=== PATIENT | female | born 1975 | race Caucasian/White ===

== ENCOUNTER → 2018-01-24 11:19 | Outpatient (CLI) | payer BC, SELFPAY ==
--- NOTE | 2018-01-24 | BRBX_PTH ---
PATIENT: KOURTNEY TORRE LOC: [facility] U#:[id number] AGE/SX: 50/F ROOM: RE01/24/[address]: Dr. Mahendra Hsu MD : 1975 BED: DIS: SPEC #: [id number] RECD: 01/24/18 14:25 STATUS: WILD FLO #: [id number] DELMA: 01/24/18 00:[address]: Mahendra Hsu DEPT: SURGICAL PATHOLOGY RECD BY: Rafa Campos ENTERED: 01/24/18 14:26 SP TYPE: BREAST BX OTHR DR: Radha Benito PA-C Tissues: Left breast, NOS Procedures: Surgery Specimen Level IV HEADER OPERATION: Ultrasound-guided left breast biopsy PRE-OP DIAGNOSIS: Abnormal mammogram left breast TISSUE SUBMITTED: Left breast tissue ISCHEMIC TIME: 1 minute FIXATION TIME: 11.5 hours MICROSCOPIC DIAGNOSIS Left breast, ultrasound-guided core biopsy: Invasive ductal carcinoma with the following characteristics: Maximal length - 8 mm Nuclear grade ? 11/11 AM:christy 01/25/18 COMMENT ER/WI/Oaf5bop studies are being performed on sections of tumor and the results from this study will be reported separately ([id number]). Case has been reviewed in consultation with Dr. South who concurs with the above diagnosis. IDC:[email or web address] MICROSCOPIC DESCRIPTION Slides are reviewed. GROSS DESCRIPTION Received in fixative is one container labeled with the patient's name and designated left breast. The specimen consists of two elongated fragments of spain-yellow fibroadipose tissue each measuring 1.4 cm in length and 0.1 cm in diameter. The entire specimen is submitted in one cassette. / BAKARI:christy 01/24/18 TC:0 CPT: 89375
--- NOTE | 2018-01-24 | IMM_PTH ---
PATIENT: KOURTNEY TORRE LOC: [facility] U#:[id number] AGE/SX: 50/F ROOM: RE01/24/[address]: Dr. Mahendra Hsu MD : 1975 BED: DIS: SPEC #: [id number] RECD: 01/25/18 11:26 STATUS: WILD REQ #: [id number] DELMA: 01/24/18 00:[address]: Mahendra Hsu DEPT: IMMUNOHISTOCHEMISTRY RECD BY: Mary Neff Tissues: Left breast, NOS Procedures: CALPONIN-1 (add) CK5-6 (add) CK8 (add) E-CAD (add) HER2 JENNA (add) KI-67 (add) P53 (add) CO (add) P40 (add) ER (initial) PHYSICIAN & INSTITUTION [place] [id number] SPECIMEN INFORMATION: Tissue Source: Left breast tissue Clinical Info: Abnormal mammogram left breast Specimen Number: [id number] CPT code: 84709, 38839 x6, 48668 x3 METHODOLOGY: Deparaffinized sections of prefer/formalin-fixed tissue or PAP/DQ stained slides are incubated with monoclonal/polyclonal antibodies/oligonucleotide probes. Localization is made via biotin free immunoperoxidase method. Appropriate controls are performed and reacted as expected. Results on target cell population are indicated in the following table: RESULTS: ANTIBODY / CLONE RESULT P53 (DO-7) positive, 2% dim Ki-67 (30-9) positive, low CK8 (71qbpoW05) positive CK5-6 (D5 & 1684) negative Calponin-1 (HT061O) negative P40 (BC28) negative E-Cad (ECH-6) positive MORPHOMETRIC ANALYSIS ER (clone 6F11) >95%, strong CO (clone 16/1E2) >95%, strong Her-2Neu (clone CB11) 0-1+ The prognostic test for HER2 is performed on formalin-fixed paraffin embedded tissue. A 3+ (positive) staining pattern is defined as intense, homogeneous, complete, circumferential membranous staining in >10% of contiguous tumor cells. A similar weak (2+) staining pattern is interpreted as equivocal. CATHY follow-up testing is recommended for all equivocal cases. Positivity/negativity for ER/CO is reported if > or < 1% of the tumor cells are immuno- reactive, respectively. The ASCO/CAP criteria is used for scoring. Reference: Journal of Clinical Oncology, 2013; 31:3521-6726 & 2010; 16:8768-7810. Duration of fixation: 11.5 Hrs; Sample Adequate: Yes. These assays have not been validated on decalcified tissues. Results should be interpreted with caution given the likelihood of false negativity on decalcified specimens. These tests were developed and their performance characteristics determined by [facility]. They may not have been cleared or approved by the U.S. Food and Drug Administration. The FDA has determined that such clearance or approval is not necessary. INTERPRETATION: Left breast, ultrasound-guided biopsy: Invasive ductal carcinoma, grade 2/3. Positive for estrogen receptors (favorable prognostic indicator). Positive for progesterone receptors (favorable prognostic indicator). Negative for overexpression of ZQS7tzs. AM:christy 01/25/18
== END ==
PROVIDERS: Visit Provider Surgery
DX: R92.8 Other abnormal and inconclusive findings on diagnostic imaging of breast (principal)
CPT/HCPCS: 88305; 88341; 88342

== ENCOUNTER 2018-02-21 09:56 | Observation (INO) | payer BC, SELFPAY ==
[2018-02-15 12:02] LABS: Anion Gap 8 (5-15); BUN 16 mg/dL (7-18); BUN/Creat Ratio 14.7 RATIO (10-20); Calcium,Total 8.2 mg/dL (8.5-10.1); Chloride 108 mmol/L (98-107); Creatinine, Serum 1.09 mg/dL (0.55-1.02); EST Glomerular Filtration Rate 59 mL/min (>60); Est Glom Filt Rate - Afr Amer 71 mL/min (>60); Glucose 67 mg/dL (74-106); Potassium 3.9 mmol/L (3.5-5.1); Sodium Level 142 mmol/L (136-145)
--- NOTE | 2018-02-19 21:22 | PCM.HP.BLA ---
History and Physical Date of Admission: 02/20/18 HISTORY OF PRESENT ILLNESS 42-year-old woman Presents for Evaluation for Breast Reconstruction. She had her annual mammogram and ultrasound on January 09, [address] [facility]. It showed a suspicious mass in the left breast at the [address] Hsu performed a breast biopsy on January 24, 2018. It showed invasive ductal carcinoma, grade 2/3. Estrogen receptors were positive. Progesterone receptors were positive. KCP3yme was negative for overexpression. She has decided on proceeding with mastectomy. 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 She is concerned about developing breast cancer in the right breast over her lifetime. With this cancer phobia, the patient has expressed interest in a prophylactic mastectomy on the right side as well and then proceeding with bilateral breast reconstruction. Patient denies any nipple discharge. Patient had a gastric bypass procedure done 8 years ago in [place]. PAST MEDICAL HISTORY Ulcer. Sleep apnea. Asthma. Sinusitis. Allergic rhinitis. Hypertension. Vitamin D deficiency. Vitamin B12 deficiency. Hypothyroidism. PAST SURGICAL HISTORY Cholecystectomy. Gastric bypass procedure 8 years ago. . MEDICATIONS Budesonide-formoterol. Vitamin D2. Oralia. Folic acid. Singulair. Omeprazole. Spironolactone. ALLERGIES None. SOCIAL HISTORY Patient does not smoke. Patient does not drink alcohol. FAMILY HISTORY Positive for breast cancer. Father-asthma, bleeding disorder, kidney cancer, heart disease, hypertension, thyroid disorder, and ulcer. Mother-bleeding disorder, diabetes, and osteoporosis. REVIEW OF SYSTEMS General - Denies fever, fatigue. Had weight loss from gastric bypass procedure. ENT - Denies nasal congestion and sore throat. Eyes - Denies cataracts and glaucoma. Endocrine - Denies excessive thirst and urination. Has recent diagnosis of left breast cancer. Has cancer phobia right breast. Has thyroid disease. Skin - No suspicious lesions. Musculoskeletal - Denies joint pain, joint stiffness, weakness of muscles and joints, back pain, and arthritis. Neuro - Denies headaches. Cardiovascular - Denies chest pain, fatigue, shortness of breath with exertion. Respiratory - Denies cough and shortness of breath. Has asthma. Psych - Denies anxiety and depression. Gastrointestinal - Denies nausea, vomiting, and constipation. Has some diarrhea. Hematologic - Denies abnormal bruising and bleeding. Genitourinary - Denies hematuria and urinary frequency. PHYSICAL EXAMINATION General - Alert and oriented. Her bra size is 38 DD. HEENT - PERRL. EOMI. Throat is clear. Neck - Supple and nontender. No cervical adenopathy. Breast - Bilateral macromastia. Stage II ptosis with the nipple areolar complex below the inframammary fold. No breast masses palpable in right breast. Residual bruising noted in left breast at biopsy area. No axillary adenopathy. Distance from midclavicular line on the right to the nipple is 31 cm and from the nipple to the inframammary fold is 10 cm. Distance from midclavicular line on the left to the nipple is 31 cm and from the nipple to the inframammary fold is 12 cm. Nipple areolar complex diameter is 6 cm bilaterally. Breast diameter is 15 cm bilaterally. No inframammary intertrigo noted. Heart - Regular rate and rhythm. Lungs - Clear to auscultation. Abdomen - Soft and nondistended. No hernias noted. There is a lower midline scar from the umbilicus to the pubis. There is skin and subcutaneous tissue redundancy between the umbilicus and the pubic area. The tissue has decreased elasticity from the weight loss. Extremities - FROM. No axillary adenopathy. No inguinal adenopathy. Neuro - CN II - XII grossly intact. ASSESSMENT 1. Left breast cancer. 2. Cancer phobia right breast. 3. Planned acquired absence bilateral breasts. 4. Planned disproportion reconstructed breasts. 5. Breast ptosis. 6. Family history of breast cancer. 7. Estrogen receptor positive status. 8. Excessive weight loss from gastric bypass procedure. PLAN Discussed with the patient the various breast reconstruction options. These range between using expanders and implants versus using autogenous tissue versus a combination of the 2. She initially was leaning toward using expanders and implants. She has enough tissue using autogenous tissue in her abdominal area. However the tissue is not of good quality because of decreased elasticity from her weight loss. Using a pedicle TRAM flap may lead to increased wound healing problems. To minimize those wound healing problems with her decreased tissue elasticity, she will need to go to a tertiary center where microvascular free tissue transfer would be used for the breast reconstruction. Patient states that she would like to stay local. With her recent diagnosis of left breast cancer, the patient is getting nervous and developing concerns about developing cancer in the right breast at some point in her lifetime. With this cancer phobia, she is a candidate for prophylactic mastectomy on the right side followed by bilateral breast reconstruction. She has expressed interest that she would like to proceed with prophylactic mastectomy at this time. I would do the prophylactic mastectomy at the same time as Dr. Hsu doing the mastectomy. We would utilize separate instruments and separate staff to minimize cross contamination of cancer cells. After the mastectomies are completed, we would then proceed with beginning the immediate breast reconstruction process. The traditional option is placement of saline tissue expanders in a submuscular position followed by the removal in the future with replacement cohesive gel implants. With her degree of breast ptosis, she would need revision of her breast reconstruction in the future with excision of the excess skin tissue with a breast lift type of procedure and incision to help shape the skin envelope over the implants. With her decreased elasticity of her breast skin, she is at increased risk of wound healing problems at the Tzone. One way to minimize that is to decide on size of implant and then place a smaller one to minimize tension on the incision. Even with the smaller implant, the risk is less but still there. Therefore for the mastectomy procedure instead of using the traditional horizontal incision which includes the nipple areolar complex, I will proceed with the Tzone breast lift incision. If there is breakdown in the T-zone area, it usually heals with local wound care and antibiotics. However sometimes we are pressed for time during the postop period because of the need for adjuvant therapy such as chemotherapy or radiation therapy. If this becomes an issue postop because of the need for adjuant therapy, the implant may need to be removed with or without placement of an shuttler car until the adjuvant therapy is completed. I do not want to compromise the cancer care and adjuvant therapy with breast reconstruction healing issues. I would place acellular dermal matrix graft over the implant in the prepectoral position to help protect the implant if there is some Tzone breakdown. The patient understands that because of the gastric bypass, the skin flaps in the breasts would not be of the best quality and that placement of submuscular tissue expanders would be safer initially. She voiced understanding and wishes to proceed. She understands extra surgery may be necessary if there is exposed implants from wound healing problems. Tissue that is removed from the right breast will be sent to pathology for analysis to rule out carcinoma. She would have drains in for several days and have a chest wall compression wrap to minimize seroma formation. Drains would be in for 10-14 days. Sometimes during this breast cancer process, it is normal to have anxiety and have trouble eating and sleeping. Will write a script for Valium (30 tabs) to help with her anticipated anxiety. If she does not need any Valium before the surgery, she will certainly need it afterward because of the muscle spasm that will result from the mastectomies. Patient was informed of the risks and complications of the procedure including alternatives of surgery. These are discussed with him personally. She voices understanding and wishes to proceed. Some of the risks and complications were included in the form from the [employer]. We will call Dr. Hsu's office to help coordinate the surgery in the next couple of weeks. Surgery will be under general anesthesia with a surgical observation overnight stay. She will go home once she is tolerating oral pain medication.
[2018-02-20] VITALS (8 sets, daily range): BP systolic 103–167; BP diastolic 53–93; PULSE 53–63; RESP 14–18; TEMP 36–37.3; O2SAT 98–100; BMI 36.8
--- NOTE | 2018-02-20 | AXNB_PTH ---
PATIENT: KOURTNEY TORRE LOC: [facility] U#:[id number] AGE/SX: 42/F ROOM: [id number] RE02/21/[address]: Dr. Sundar Aquino MD : 1975 BED: 1 DIS: 02/22/2018 SPEC #: [id number] RECD: 02/20/18 10:36 STATUS: WILD REQ #: [id number] DELMA: 02/20/18 00:[address]: Sundar Aquino DEPT: SURGICAL PATHOLOGY RECD BY: Mary Neff ENTERED: 02/20/18 10:38 SP TYPE: AX NODE BX OTHR DR: Radha Benito PA-C Tissues: A - Axillary lymph node, NOS B - Left breast, NOS C - Right breast, NOS D - Left breast, NOS Procedures: Frozen Section (charge) [facility] Surgery Specimen Level IV Surgery Specimen Level V Frozen (no charge) HEADER OPERATION: Left mastectomy with sentinel lymph node biopsy; right prophylactic mastectomy PRE-OP DIAGNOSIS: Invasive ductal carcinoma left breast; planned acquired absence bilateral breasts TISSUE SUBMITTED: A - Left sentinel lymph node at 0935, FS, B ? Left breast, C ? Right breast and skin, D ? Previous biopsy site left lateral breast ? suture at site FROZEN SECTION DIAGNOSIS A. Left sentinel lymph node, biopsy: Two out of two lymph nodes, negative for metastatic carcinoma. SJ:christy 02/20/18 MICROSCOPIC DIAGNOSIS A. Left sentinel lymph node, biopsy: Two out of two lymph nodes, negative for metastatic carcinoma. B. Left breast, mastectomy: Invasive ductal carcinoma. See cancer summary below. C. Right breast and skin, mastectomy: Focal minimal fibrocystic changes and intraductal hyperplasia without atypia. D. Previous biopsy site left lateral breast: Focal fat necrosis and fibrosis, consistent with previous biopsy site. Negative for carcinoma. INVASIVE BREAST CANCER SUMMARY: (Including specimens A & B) Specimen ? total breast (including nipple and skin). Procedure ? total mastectomy (including nipple and skin). Lymph node sampling ? sentinel lymph nodes Specimen integrity ? single intact specimen Specimen laterality - left Tumor site ? upper outer quadrant Tumor size ? 1.5 x 1.5 x 1 cm Tumor focality ? single focus of invasive carcinoma. Macroscopic and Microscopic extent of tumor: Skin ? invasive carcinoma does not invade into the dermis or epidermis. Nipple ? ductal carcinoma in situ does not involve the nipple epidermis Skeletal muscle ? no skeletal muscle present. Ductal carcinoma in situ (DCIS) - present Extensive intraductal component (EIC) - negative Estimated size (extent) of DCIS ? DCIS comprise <5% of the total tumor volume Number of blocks with DCIS - 2 Number of blocks examined - 12 Architectural patterns ? cribriform pattern Nuclear grade ? grade 2 (intermediate) Necrosis ? not identified Lobular carcinoma in situ (LCIS) ? not present Histologic type of invasive carcinoma ? no special type Histologic Grade (Radha grade): Glandular/tubular differentiation - score 1 Nuclear pleomorphism - score 2 Mitotic count ? score 1 Overall grade - 1 (score of 4) Margins - Margins uninvolved by invasive carcinoma and ductal carcinoma in situ. The invasive carcinoma and ductal carcinoma in situ are 1.4 cm away from the closest superior margin. Treatment effect: Response to presurgical (neoadjuvant) therapy - no known presurgical therapy. Lymph-Vascular invasion ? not identified Dermal lymph-vascular invasion - not identified Lymph nodes: Number of sentinel lymph nodes examined - 2 Total number of lymph nodes examined (sentinel and nonsentinel) - 2 Number of lymph nodes with macrometastases, micrometastases and isolated tumor cells - 0 Method of evaluation of sentinel lymph nodes - H & E, multiple levels and IHC. Distance metastasis ? not applicable Additional pathologic findings ? fibrocystic changes and intraductal hyperplasia without atypia. Ancillary studies - previously performed on section of tumor ([id number] / [id number]). ER ? positive (>95%, strong) CO - positive (>95%, strong) Her2 maynor ? negative (0-1+) Her2 by dual CATHY ? not performed Microcalcifications ? present in benign breast tissue Clinical history - Please make reference to previous specimen ([id number]) left breast, ultrasound-guided core biopsy with diagnosis of invasive ductal carcinoma. PATHOLOGIC STAGE: pT1c pN0(sn) Mx The above summary is in compliance with [employer] (CAP) Cancer Protocols Checklist and [place] Joint Committee on Cancer (AJCC), Staging Manual, 8th Ed. SJ:christy 02/23/18 COMMENT A. The lymph nodes are negative for metastatic carcinoma on multiple H & E levels and immunohistochemical stains for cytokeratins ([id number]). MICROSCOPIC DESCRIPTION Slides are reviewed. GROSS DESCRIPTION A - Received fresh for frozen section diagnosis labeled with the patient's name is a specimen designated left sentinel lymph node. The specimen consists of two pieces of yellow adipose tissue containing nodule measuring in aggregate 4 x 3.5 x 1.5 cm. Two nodules consistent with lymph nodes are identified each measuring 2 cm in greatest dimension. The lymph nodes are submitted in entirety for frozen section diagnosis in two cassettes as follows: 1 ? frozen section, one bisected lymph node, 2 ? frozen section, one bisected lymph node. / SJ:rg 02/20/18 B - Received in fixative is one container labeled with the patient's name and designated left breast. The specimen consists of a mastectomy specimen consisting of breast tissue with overlying skin ellipse. The breast tissue measures 28 x 18 x 8 cm and the skin ellipse measures 14.5 x 5 cm. The nipple measures 1.1 cm in greatest dimension. Also present in the container are three variable sized pieces of skin measuring in aggregate 11 x 9 x 3 cm. The specimen is not oriented. The presumed margins are inked as follows: superior ? green, inferior ? blue, anterior ? yellow, posterior ? black, medial ? orange and lateral ? red. The skin surface shows blue dye discoloration. No skin lesion is identified. Serial sections reveal a spain, indurated mass in the upper outer quadrant of the breast tissue measuring 1.5 x 1.5 x 1 cm. The tumor mass is 1.5 cm away from the closest superior margin. Sections of the rest of the breast tissue and additional pieces of tissue reveal yellow adipose cut surfaces mixed with a scant fibrous area. Extrusion Line Operator sections are submitted in 12 cassettes as follows: 1 ? nipple, entirely submitted, 2 ? perpendicular medial, lateral and superior margins, 3 ? perpendicular anterior margin, posterior margin and skin, 4-7 ? tumor, entirely submitted (cassette 4 contains the tumor with closest inferior margin), 812 ? veterans contact representative sections from the other area. / SJ:christy 02/21/18 C - Received in fixative is one container labeled with the patient's name and designated right breast and skin. The specimen consists of a mastectomy specimen consisting of breast tissue with overlying skin piece (pear-shape). The breast tissue measures 23 x 20 x 6 cm. The overlying skin ellipse measures 11 x 4 cm. The specimen is not oriented. The specimen is inked as follows: superior ? blue, inferior ? green, posterior ? black, medial ? red and lateral ? orange. Also present in the container are multiple pieces of skin with underlying fibroadipose tissue measuring in aggregate 15 x 13 x 4 cm. The nipple measures 1.2 cm in greatest dimension. No skin lesion is identified. Sections of the breast tissue and attached pieces of adipose tissue do not reveal any mass lesion and reveals spain-yellow adipose cut surfaces mixed with a scant fibrous area. Extrusion Line Operator sections are submitted in 11 cassettes as follows: 1 ? nipple, entirely submitted, 2-4 ? medial portion breast tissue, 5-7 - medial portion breast tissue, 8-10 ? lateral portion breast tissue, 11 ? detached piece of skin with underlying adipose tissue. / BAKARI:christy 02/21/18 D - Received in fixative is one container labeled with the patient's name and designated previous biopsy site, left lateral breast, suture at site. The specimen consists of a triangular piece of spain-white skin measuring 9.5 x 9 cm and up to 1.5 cm in thickness. The biopsy site is identified by a suture. The deep surface underneath the biopsy site is inked black. Sections do not reveal any mass lesion. Extrusion Line Operator sections are submitted in three cassettes as follows: 1 ? biopsy site area, 2 ? sections adjacent to the biopsy site, 3 - Extrusion Line Operator sections from the other area. / BAKARI:christy 02/21/18 TC:0 CPT: 00138 x3, 79321, 46648, 34288 ADDENDUM ADDENDUM ADDENDUM ADDENDUM ADDENDUM ADDENDUM ADDENDUM ADDENDUM 04/02/2018 13:17 ADDENDUM 04/02/2018 13:17 ADDENDUM 04/02/2018 13:17 ADDENDUM 04/02/2018 13:17 ADDENDUM 04/02/2018 13:17 An order for Oncotype testing was received from Dr. Masters. This necessitated case review, block and slide selection by pathologist at [facility]. Breast Cancer Recurrence Score = 12 Results of the complete Oncotype testing ([employer] report) are viewable in EMR under: Reports - Pathology - Lab Pathology Report, Scanned.
--- NOTE | 2018-02-20 | IMM_PTH ---
PATIENT: KOURTNEY TORRE LOC: [facility] U#:[id number] AGE/SX: 42/F ROOM: [facility] RE02/21/[address]: Dr. Sundar Aquino MD : 1975 BED: 1 DIS: 02/22/2018 SPEC #: [id number] RECD: 02/23/18 10:43 STATUS: WILD REQ #: [id number] DELMA: 02/20/18 00:[address]: Sundar Aquino DEPT: IMMUNOHISTOCHEMISTRY RECD BY: Mary Neff ENTERED: 02/23/18 10:45 SP TYPE: IMMUNO OTHR DR: Radha Benito PA-C Tissues: A - Axillary lymph node, NOS Procedures: CK7 (add) Pankeratin (initial) Pankeratin (add) PHYSICIAN & INSTITUTION [place] [id number] SPECIMEN INFORMATION: Tissue Source: A ? Left sentinel lymph node, biopsy Clinical Info: Invasive ductal carcinoma left breast Specimen Number: [id number] A1 & A2 CPT code: 23236, 98846 x3 METHODOLOGY: Deparaffinized sections of prefer/formalin-fixed tissue or PAP/DQ stained slides are incubated with monoclonal/polyclonal antibodies/oligonucleotide probes. Localization is made via biotin free immunoperoxidase method. Appropriate controls are performed and reacted as expected. Results on target cell population are indicated in the following table: RESULTS: ANTIBODY / CLONE RESULT Block A1 AE1-3 (AE1/AE3/PCK26) negative CK7 (OV-TL12/30) negative Block A2 AE1-3 (AE1/AE3/PCK26) negative CK7 (OV-TL12/30) negative These tests were developed and their performance characteristics determined by [facility]. They may not have been cleared or approved by the U.S. Food and Drug Administration. The FDA has determined that such clearance or approval is not necessary. INTERPRETATION: A. Left sentinel lymph node, biopsy: Two out of two lymph nodes, negative for metastatic carcinoma. SJ:christy 02/23/18
[2018-02-20 07:23] LABS: Internal QC Validated? YES +Cl - CLEAR BKGD; Pregnancy, Urine Negative Negative
[2018-02-20] MEDS: Cefazolin 2 GM in 0.9% Normal Saline 100 ML IV (08:35)
--- NOTE | 2018-02-20 08:39 | PCM.OPRPT ---
Problem List (1) Malignant neoplasm of upper-outer quadrant of left female breast Status: Acute Qualifiers: Estrogen receptor status: positive Qualified Code(s): C50.412 - Malignant neoplasm of upper-outer quadrant of left female breast; Z17.0 - Estrogen receptor positive status [ER+] Report of Operation Date of Procedure: 02/20/18 Pre-Operative Diagnosis: c50.412 left breast cancer upper outer quadrant. z17.0 estrogen receptor positive Post-Operative Diagnosis: same Surgery/Procedure Performed:: 1. inj 5 cc lympozuren blue. 2. left masectomy. 3. left sentinel lymph node biopsy Anesthesiologist: Isreal Ferreira Description of Procedure: Patient was brought into the operating room. Placed in the supine position. Under excellent endotracheal intubation 5 cc of Lymphazurin blue were injected circumareolar the around the left nipple. Then both breasts were sterilely prepped and draped in the usual fashion. Dr. Aquino will be dictating the mastectomy on the right side in the immediate reconstruction and I will be dictating the mastectomy and sentinel lymph node component on the left breast. A teardrop incision was made around the nipple areolar complex on the left breast. Plasma blade was used to create flaps and a medial superior and lateral fashion I rotated the breast off of the pectoralis major muscle with the plasma blade. I was able to get the breast from the sternum and inferiorly from the rectus abdominis muscle and rotated it from a medial to lateral standpoint. I had excellent hemostasis. I was able to remove the breast completely and sent to pathology for permanent sectioning. I entered the clavipectoral fascia and immediately identified a blue lymph node remove this with a harmonic dissector as I palpated deeper I felt another lymph node dissected it free it was lightly blue and remove this as well with the harmonic dissector. I sent both of these off for frozen section which confirmed lymph nodes and were negative for metastatic cancer. I inspected the wound I had excellent hemostasis. Dr. Aquino will ellipsed the previous biopsy site out from the lateral aspect and will dictate this during his dictation. I then broke scrub and went and spoke to the family. - Admit VTE Documentation VTE Present on Admission: No VTE Mechan Device Prophylaxis: SCD's VTE Pharm Prophylaxis ordered?: No Reason prophylaxis not ordered:: Treatment Not Indicated
[2018-02-20] MEDS: Isosulfan Blue 1% 5 ML Vial (08:55)
[2018-02-20] MEDS: Methylene Blue 1% 100 MG/10 ML VIAL (09:30)
--- NOTE | 2018-02-20 15:50 | PCM.IMDPSTOP ---
Immediate Post-Op Note Date of Procedure: 02/20/18 Primary Surgeon/Physician: Sundar Aquino parcel contractor: Shanice Montes. Pre-Operative Diagnosis: 1. Left breast cancer. 2. Cancer phobia right breast. 3. Planned acquired absence bilateral breasts. 4. Planned disproportion reconstructed breasts. 5. Breast ptosis. 6. Family history of breast cancer. 7. Estrogen receptor positive status. 8. Excessive weight loss from gastric bypass procedure. Post-Operative Diagnosis: Same. Surgery/Procedure Performed:: 1. Prophylactic mastectomy right breast. 2. Immediate bilateral breast reconstruction with bilateral placement of prepectoral cohesive gel implants (650 ml each side) and placement of Alloderm Select acellular dermal matrix graft (300 cm2 each side). 3. Immediate bilateral breast reconstruction with bilateral mastopexy. Description of Surgical Findings:: 42-year-old woman Presents for Evaluation for Breast Reconstruction. She had her annual mammogram and ultrasound on January 09, 2018 at [facility] It showed a suspicious mass in the left breast at the [address] Hsu performed a breast biopsy on January 24, 2018. It showed invasive ductal carcinoma, grade 2/3. Estrogen receptors were positive. Progesterone receptors were positive. ZEL0idl was negative for overexpression. She has decided on proceeding with mastectomy. 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 She is concerned about developing breast cancer in the right breast over her lifetime. With this cancer phobia, the patient has expressed interest in a prophylactic mastectomy on the right side as well and then proceeding with bilateral breast reconstruction. Patient denies any nipple discharge. Patient had a gastric bypass procedure done 8 years ago in [place]. Today the patient underwent injection 5 cc lympozuren blue and left masectomy and left sentinel lymph node biopsy by Dr. Hsu and prophylactic mastectomy right breast and immediate bilateral breast reconstruction with bilateral placement of prepectoral cohesive gel implants (650 ml each side) and placement of Alloderm Select acellular dermal matrix graft (300 cm2 each side) and immediate bilateral breast reconstruction with bilateral mastopexy by Dr. Aquino. IV Fluids - 2200 ml. Urine Output - 700 ml. In the right breast, I used [facility] MemoryGel Smooth Round Ultra High Profile Breast Implant, (650 ml). Reference Number - [id number]. Lot Number - [id number]. Serial Number - [id number]. In the left breast, I used [facility] MemoryGel Smooth Round Ultra High Profile Breast Implant, (650 ml). Reference Number - [id number]. Lot Number - [id number]. Serial Number - [id number]. In the right breast, I used Alloderm Select Acellular Dermal Matrix Graft, X-Thick, (320 cm2). Reference Number - [id number]. Lot Number - [id number]. Expiration - June,. In the left breast, I used Alloderm Select Acellular Dermal Matrix Graft, X-Thick, (320 cm2). Reference Number - [id number]. Lot Number - [id number]. Expiration - June,. I used Stuart absorbable hemostat, (I used 2 vials, one in each breast). Reference Number - [id number]. Lot Number - [id number]. Expiration - October 05, 2022. Estimated Blood Loss: 150 ml. Specimen's removed: 1. Right breast tissue to Pathology. 2. Left breast biopsy scar to Pathology. Drains: Shen drains x 4 (2 drains in each breast). Type of Anesthesia:: General - Admit VTE Documentation VTE Present on Admission: No VTE Mechan Device Prophylaxis: SCD's VTE Pharm Prophylaxis ordered?: Yes
--- NOTE | 2018-02-20 17:28 | NURSING ---
pt did not receive flu shot last yr
[2018-02-20] MEDS: Folic Acid 1 MG Tablet PO (18:41)
[2018-02-20] MEDS: oxyCODONE 5 MG Tablet 10 MG PO ×2 (19:13→19:59)
--- NOTE | 2018-02-20 19:32 | NURSING ---
Pt started on LR 60cc/hr upon arrival to unit from LR bag hanging from PACU.
--- NOTE | 2018-02-20 20:56 | PCM.OPRPT ---
Report of Operation Date of Procedure: 02/20/18 Pre-Operative Diagnosis: 1. Left breast cancer. 2. Cancer phobia right breast. 3. Planned acquired absence bilateral breasts. 4. Planned disproportion reconstructed breasts. 5. Breast ptosis. 6. Family history of breast cancer. 7. Estrogen receptor positive status. 8. Excessive weight loss from gastric bypass procedure. Post-Operative Diagnosis: Same. Surgery/Procedure Performed:: 1. Prophylactic mastectomy right breast. 2. Immediate bilateral breast reconstruction with bilateral placement of prepectoral cohesive gel implants (650 ml each side) and placement of Alloderm Select acellular dermal matrix graft (300 cm2 each side). 3. Immediate bilateral breast reconstruction with bilateral mastopexy. Description of Surgical Findings:: 42-year-old woman Presents for Evaluation for Breast Reconstruction. She had her annual mammogram and ultrasound on January 09, 2018 at [facility]. It showed a suspicious mass in the left breast at the [address] Hsu performed a breast biopsy on January 24, 2018. It showed invasive ductal carcinoma, grade 2/3. Estrogen receptors were positive. Progesterone receptors were positive. [id number] was negative for overexpression. She has decided on proceeding with mastectomy. 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 She is concerned about developing breast cancer in the right breast over her lifetime. With this cancer phobia, the patient has expressed interest in a prophylactic mastectomy on the right side as well and then proceeding with bilateral breast reconstruction. Patient denies any nipple discharge. Patient had a gastric bypass procedure done 8 years ago in [place]. Patient was informed of the risks and complications of the procedure including alternatives of surgery. These are discussed with him personally. She voices understanding and wishes to proceed. Some of the risks and complications were included in the form from the [employer]. IV Fluids - 2200 ml. Urine Output - 700 ml. In the right breast, I used [facility] MemoryGel Smooth Round Ultra High Profile Breast Implant, (650 ml). Reference Number - [id number]. Lot Number - [id number]. Serial Number - [id number]. In the left breast, I used [facility] MemoryGel Smooth Round Ultra High Profile Breast Implant, (650 ml). Reference Number - [id number]. Lot Number - [id number]. Serial Number - [id number]. In the right breast, I used Alloderm Select Acellular Dermal Matrix Graft, X-Thick, (320 cm2). Reference Number - [id number]. Lot Number - [id number]. Expiration - June,. In the left breast, I used Alloderm Select Acellular Dermal Matrix Graft, X-Thick, (320 cm2). Reference Number - [id number]. Lot Number - [id number]. Expiration - June,. I used Stuart absorbable hemostat, (I used 2 vials, one in each breast). Reference Number - [id number]. Lot Number - [id number]. Expiration - October 05, 2022. occupational rehabilitation aide: Shanice Montes. Type of Anesthesia:: General Specimen's removed: 1. Right breast tissue to Pathology. 2. Left breast biopsy scar to Pathology. Drains: Shen drains x 4 (2 drains in each breast). Estimated Blood Loss (mL): 150 ml. Fluids Replaced: 2900 ml (IV Fluids 2200 ml and Urine Output 700 ml). Description of Procedure: Patient was taken to OR in supine position and in the sitting position preop markings were made. The sternal midline was marked down to the umbilicus. The inframammary folds were marked bilaterally. The midclavicular lines were marked down to the nipple and from the nipple to the inframammary fold. Vertical markings were made around the nipple down to the inframammary crease at the level of the midclavicular line. The patient was placed supine and placed under general anesthesia. Both breasts were prepped and draped in the usual fashion. A couch catheter was placed. Dr. Hsu worked on the left side with separate instruments and a separate staff. I worked on the right side with separate instruments and a separate staff. The preop markings were tattooed with Methylene Blue and a 25 gauge needle. He then proceeded with the left mastectomy which he will dictate separately. I started on the right side with first injecting the markings with Xylocaine with epinephrine. After waiting 5 minutes for the anesthetic to take effect, I made incision around the nipple down to the inframammary fold at the level of the midclavicular line. Placing the skin flaps on stretch, I dissected the breast tissue from the subcutaneous tissue of the skin flaps at the level of New's fascia. I dissected medially to the sternum, superiorly to the clavicle, laterally to the anterior axillary line, and inferiorly to the inframammary fold. The breast tissue was then dissected off the pectoralis muscle and sent to Pathology for analysis to rule out carcinoma. Hemostasis was obtained with electrocautery. The wound was irrigated with saline. I then temporarily closed the incision with surgical clips until Dr. Hsu was finished with his axillary dissection and frozen section analysis. The frozen section showed the lymph nodes were negative. So Dr. Hsu was finished and I then proceeded with the bilateral breast reconstruction. His instruments were removed from the operative field. The patient was then reprepped and draped and I rescrubbed and regowned for the reconstruction. To get a reasonable size of implant for the reconstruction, I will place the implant in the prepectoral position and cover the implant completely with Alloderm. I will use X-thick Alloderm for both breasts. I first proceeded with the mastopexy bilaterally. After securing the vertical incision with surgical clips, I made horizontal markings at the level of the inframammary fold. Incisions were mad as the excess tissue was removed. The horizontal incision was then closed with surgical clips. Care was taken to keep the Tzone area soft and without tension. I will then decide on size of implant to fit the breast pocket without too much tension. I may decide to then go down one size to keep less tension on the Tzone area since the tissue is weaker because if her history of gastric bypass. In these patients, the subcutaneous tissue human resource professional skin junction is weaker than normal. I secured the Alloderm to the chest wall with 3-0 Vicryl sutures to the superior aspect, and both sides leaving the inferior side open for placement of the sizer and then the implant. This was done bilaterally. I measured the breast width at 15 cm. I initially tried a 535 ml sizer, high profile xtra. I secured the sizer in the Alloderm pocket with 3-0 Vicryl sutures in the inferior aspect. I then closed the vertical incision and horinzontal incision temporarily to make sure the closure is not too tight. This was done with 3-0 Vicryl running suture. The patient was then placed in the sitting position. Good symmetry was noted between the right breast and the left breast. There did not seem to be too much tension at the Tzone which is my biggest concern. There appeared to be more space in the breast pockets. So I increased the sizer all the way up to 650 ml. The 650 ml sizer was the ultra high profile. Once again good contour was noted and there was not too much tension on the Tzone area. I probably could have gone higher but did not want to risk too much tension on the Tzone area so I stopped at 650 ml. The patient was then placed in the supine position and the temporary sutures were removed. The excess tissue that was excised from the mastopexy was sent with the mastectomy specimens. On the left side part of the mastopexy excision included the biopsy site laterally. This portion was sent separately to Pathology. The sizers were removed and the breasts were irrigated with saline. Hemostasis was obtained with electrocautery. Two size 15 Shen drains were placed in each breast through separate stab incisions laterally and secured to the skin with 3-0 Nylon suture. One drain was used for the breast pocket and one was used for the axillary area. I then sprayed Stuart absorbable hemostat into both breast wounds, one vial for each breast. I then placed the [facility] Smooth Round Ultra High Profile cohesive gel implants (650 ml) into both breast pockets underneath the Alloderm in the prepectoral position. The rest of the Alloderm was secured to the chest wall inferiorly. A malleable was placed to protect the implant during this point. The excess Alloderm was trimmed on both sides. more so on the left. I used about 300 cm2 Alloderm on each side. I then closed the mastopexy T incisions by first approximating the leading edge of the medial and lateral breast flaps to the midline of the inframammary fold with 2-0 Vicryl suture. The deep dermis and subcutaneous tissue of the horizontal and vertical incisions were approximated with 3-0 Monocryl interrupted sutures. The horizontal skin was approximated with 3-0 V-lock unidirectional barbed running subcuticular suture. The vertical skin was approximated with 4-0 Prolene simple running suture. This was topped off with Histoacryl skin tissue adhesive. Good contour was noted between the right breast and left breast. No vascular compromise was noted on the breast flaps bilaterally. Kerlix gauze dressing was applied followed by a surgical bra and an edna wrap. At the end of the procedure, there was no evidence of hematoma. The patient tolerated the procedure well and was sent to PACU in satisfactory condition. She will be admitted for a surgical observation overnight stay. She will keep her head elevated during the initial postop period. She will be discharged when steady on her feet with ambulation and tolerating po analgesia. She will be discharged home with her drains. They will be removed in 10-14 days. Grafts/Implants Used: [facility] MemoryGel Breast Implants and Alloderm acellular dermal matrix graft - Complications None. - Admit VTE Documentation VTE Present on Admission: No VTE Mechan Device Prophylaxis: SCD's VTE Pharm Prophylaxis ordered?: Yes Reason prophylaxis not ordered:: Medical Contraindication Code Visit Surgery Charges CPT - 05481 ICD-10 - C50.912, F40.298, Z90.13, N65.1, N64.81, Z80.3, Z17.0, R63.4 79646 C50.912, F40.298, Z90.13, N65.1, N64.81, Z80.3, Z17.0, R63.4 [id number] C50.912, F40.298, Z90.13, N65.1, N64.81, Z80.3, Z17.0, R63.4 32672 C50.912, N64.81, F40.298, Z90.13, N65.1, Z80.3, Z17.0, R63.4 [id number] C50.912, N64.81, F40.298, Z90.13, N65.1. Z80.3, Z17.0, R63.4 17943 C50.912, F40.298, Z90.13, N65.1, N64.81, Z80.3, Z17.0, R63.4 22617-32 C50.912, F40.298, Z90.13, N65.1, N64.81. Z80.3, Z17.0, R63.4
[2018-02-20] MEDS: Lactated Ringers 1,000 ML 60 ML IV (22:11)
[2018-02-20] MEDS: Cefazolin 1 GM/50 ML BAG IV (22:12)
[2018-02-20] MEDS: Montelukast 10 MG Tablet PO (22:13)
[2018-02-20] MEDS: Docusate Sodium 100 MG Capsule PO (22:13)
[2018-02-20] MEDS: diazePAM 5 MG Tablet PO (22:31)
[2018-02-21] VITALS (8 sets, daily range): BP systolic 130–183; BP diastolic 74–110; PULSE 59–67; RESP 16–18; TEMP 36.8–37.5; O2SAT 99–100
[2018-02-21] MEDS: oxyCODONE 5 MG Tablet 10 MG PO ×5 (01:18→22:33)
[2018-02-21] MEDS: Cefazolin 1 GM/50 ML BAG IV ×3 (05:21→21:22)
[2018-02-21] MEDS: HYDROmorphone 1 MG/ML Syringe IV (05:21)
[2018-02-21] MEDS: Enoxaparin 40 MG/0.4 ML Syringe SC (05:22)
[2018-02-21 06:15] LABS: Hematocrit 35.2 % (37-47); Mean Corp Hgb Conc 31.3 g/gl (32-36); Mean Corpuscular Hgb 28.9 pg (27.0-32.0); Mean Corpuscular Volume 92.4 fL (81-99); Platelet Count 264 K/mm3 (150-450); RBC Distribution Width CV 13.3 % (11.6-14.6); RBC Distribution Width SD 44.5 fl (35.1-43.9); Red Blood Count 3.81 M/mm3 (4.2-5.4); White Blood Count 8.6 K/mm3 (4.4-11.0)
[2018-02-21 06:21] LABS: Scan Indicated on CBC? Y/N NO
[2018-02-21 06:41] LABS: Anion Gap 5 (5-15); BUN 10 mg/dL (7-18); BUN/Creat Ratio 9.3 RATIO (10-20); Calcium,Total 7.6 mg/dL (8.5-10.1); Chloride 105 mmol/L (98-107); Creatinine, Serum 1.08 mg/dL (0.55-1.02); EST Glomerular Filtration Rate 59 mL/min (>60); Est Glom Filt Rate - Afr Amer 72 mL/min (>60); Estimated Creatinine Clearance 64.17 ml/min; Glucose 95 mg/dL (74-106); Potassium 3.7 mmol/L (3.5-5.1); Prealbumin 16.7 mg/dL (20.0-40.0); Sodium Level 139 mmol/L (136-145)
[2018-02-21] MEDS: Budesonide Respules 0.5 MG/2 ML AMPUL.NEB. INHALATION (07:28)
--- NOTE | 2018-02-21 07:31 | CPS ---
Patient states that she uses her Albuterol inhaler PRN, patient is clear bilaterally and does not wish to use at this time. Patient is aware of order and knows that she can get the albuterol as needed if she wants. Italia GONZALES
[2018-02-21] MEDS: Folic Acid 1 MG Tablet PO (08:32)
[2018-02-21] MEDS: Spironolactone 50 MG Tablet PO (08:32)
[2018-02-21] MEDS: Loratadine 10 MG Tablet PO (08:32)
[2018-02-21] MEDS: Docusate Sodium 100 MG Capsule PO ×2 (08:33→21:22)
--- NOTE | 2018-02-21 09:56 | PCM.PN.SRG ---
Patient Problems: Active and Suspected Problems (Last Reviewed 02/07/18 @ 14:10 by Luz Tafoya) Malignant neoplasm of upper-outer quadrant of left female breast (Acute) Subjective: Postop #1 Patient is resting comfortably. Has some shoulder discomfort, probably from having her arms extended for long time during surgery. - Physical Exam General: Alert, Oriented x3 HEENT: PERRLA, EOMI Neck: Supple Lungs: Clear to auscultation Cardiovascular: Regular rate, Regular Rhythm Abdomen: Soft, Non Tender Skin: Incision - Breast incisions are dry and intact. Breasts are soft and symmetrical. Small amount of bruising on skin flaps inferiorly. No clinical evidence of hematoma. Neurological: Cranial nerves II-XII grossly intact Psych/Mental Status: Normal Affect, Appropriate Vital Signs Temp Pulse Resp BP Pulse Ox 98.3 F 62 16 134/78 H 100 02/21/18 08:26 02/21/18 08:26 02/21/18 08:26 02/21/18 08:26 02/21/18 08:26 Oxygen Delivery Method Room Air Weight: 229 lb 8.019 oz Body Mass Index (BMI) 36.8 Intake and Output for Last 24 Hours 02/19/18 02/20/18 02/21/18 23:59 23:59 23:59 Intake Total 2500 / 2500 1114 / 1114 Output Total 992 / 992 885 / 885 Balance 1508 / 1508 229 / 229 Drainage 62 ml yesterday, 210 ml today. Laboratory Tests Past 24 Hrs 02/21/18 02/21/18 06:00 06:00 WBC 8.6 RBC 3.81 L Hgb 11.0 L Hct 35.2 L MCV 92.4 MCH 28.9 MCHC 31.3 L RDW 13.3 RDW Differential 44.5 H Plt Count 264 MPV 10.0 Sodium 139 Potassium 3.7 Chloride 105 Carbon Dioxide 29.0 Anion Gap 5 BUN 10 Creatinine 1.08 H Estim Creat Clear Calc 64.17 Est GFR (MDRD) Af Amer 72 Est GFR (MDRD) Non-Af 59 L BUN/Creatinine Ratio 9.3 L Glucose 95 Calcium 7.6 L Prealbumin 16.7 L Medical Necessity - Tobacco Use Smoking Status: Never smoker Assessment/Plan Active and Suspected Problems (Last Reviewed 02/07/18 @ 14:10 by Luz Tafoya) Malignant neoplasm of upper-outer quadrant of left female breast (Acute) 1. Left breast cancer. 2. Cancer phobia right breast. 3. Planned acquired absence bilateral breasts. 4. Planned disproportion reconstructed breasts. 5. Breast ptosis. 6. Family history of breast cancer. 7. Estrogen receptor positive status. 8. Excessive weight loss from gastric bypass procedure. 9. s/p injection 5 cc lympozuren blue and left masectomy and left sentinel lymph node biopsy by Dr. Hsu and prophylactic mastectomy right breast and immediate bilateral breast reconstruction with bilateral placement of prepectoral cohesive gel implants (650 ml each side) and placement of Alloderm Select acellular dermal matrix graft (320 cm2 each side) and immediate bilateral breast reconstruction with bilateral mastopexy by Dr. Aquino. Patient has some shoulder discomfort. From length of surgery. Should resolve with time. Breasts are soft and symmetrical. Incisions are dry and intact. Minor bruising seen inferiorly. Will observe. Should improve with time. Keep head elevated. Ambulate with assist. Unsteady on her feet. Remove couch today. Prealbumin was 16.7. Encourage nutritional supplementation with protein to help the healing process. Pain controlled with Dilaudid. Will wean to po analgesia and anticipate discharge tomorrow. Would like her to be more steady on her feet with ambulation. Will remove drains in the office in 10-14 days.
--- NOTE | 2018-02-21 13:57 | OP.PCM_ITS ---
Report of Operation Date of Procedure: 02/20/18 Pre-Operative Diagnosis: 1. Left breast cancer. 2. Cancer phobia right breast. 3. Planned acquired absence bilateral breasts. 4. Planned disproportion reconstructed breasts. 5. Breast ptosis. 6. Family history of breast cancer. 7. Estrogen receptor positive status. 8. Excessive weight loss from gastric bypass procedure. Post-Operative Diagnosis: Same. Surgery/Procedure Performed:: 1. Prophylactic mastectomy right breast. 2. Immediate bilateral breast reconstruction with bilateral placement of prepectoral cohesive gel implants (650 ml each side) and placement of Alloderm Select acellular dermal matrix graft (300 cm2 each side). 3. Immediate bilateral breast reconstruction with bilateral mastopexy. Description of Surgical Findings:: 42-year-old woman Presents for Evaluation for Breast Reconstruction. She had her annual mammogram and ultrasound on January 09, 2018 at [facility]. It showed a suspicious mass in the left breast at the [address] Hsu performed a breast biopsy on January 24, 2018. It showed invasive ductal carcinoma, grade 2/3. Estrogen receptors were positive. Progesterone receptors were positive. [id number] was negative for overexpression. She has decided on proceeding with mastectomy. 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 She is concerned about developing breast cancer in the right breast over her lifetime. With this cancer phobia, the patient has expressed interest in a prophylactic mastectomy on the right side as well and then proceeding with bilateral breast reconstruction. Patient denies any nipple discharge. Patient had a gastric bypass procedure done 8 years ago in [place]. Patient was informed of the risks and complications of the procedure including alternatives of surgery. These are discussed with him personally. She voices understanding and wishes to proceed. Some of the risks and complications were included in the form from the [employer]. IV Fluids - 2200 ml. Urine Output - 700 ml. In the right breast, I used [place] MemoryGel Smooth Round Ultra High Profile Breast Implant, (650 ml). Reference Number - [id number]. Lot Number - [id number]. Serial Number - [id number]. In the left breast, I used [place] MemoryGel Smooth Round Ultra High Profile Breast Implant, (650 ml). Reference Number - [id number]. Lot Number - [id number]. Serial Number - [id number]. In the right breast, I used Alloderm Select Acellular Dermal Matrix Graft, X- Thick, (320 cm2). Reference Number - [id number]. Lot Number - [id number]. Expiration - June,. In the left breast, I used Alloderm Select Acellular Dermal Matrix Graft, X- Thick, (320 cm2). Reference Number - [id number]. Lot Number - [id number]. Expiration - June,. I used Stuart absorbable hemostat, (I used 2 vials, one in each breast). Reference Number - [id number]. Lot Number - [id number]. Expiration - October 05, 2022. jacquard fixer: Shanice Montes. Type of Anesthesia:: General Specimen's removed: 1. Right breast tissue to Pathology. 2. Left breast biopsy scar to Pathology. Drains: Shen drains x 4 (2 drains in each breast). Estimated Blood Loss (mL): 150 ml. Fluids Replaced: 2900 ml (IV Fluids 2200 ml and Urine Output 700 ml). Description of Procedure: Patient was taken to OR in supine position and in the sitting position preop markings were made. The sternal midline was marked down to the umbilicus. The inframammary folds were marked bilaterally. The midclavicular lines were marked down to the nipple and from the nipple to the inframammary fold. Vertical markings were made around the nipple down to the inframammary crease at the level of the midclavicular line. The patient was placed supine and placed under general anesthesia. Both breasts were prepped and draped in the usual fashion. A couch catheter was placed. Dr. Hsu worked on the left side with separate instruments and a separate staff. I worked on the right side with separate instruments and a separate staff. The preop markings were tattooed with Methylene Blue and a 25 gauge needle. He then proceeded with the left mastectomy which he will dictate separately. I started on the right side with first injecting the markings with Xylocaine with epinephrine. After waiting 5 minutes for the anesthetic to take effect, I made incision around the nipple down to the inframammary fold at the level of the midclavicular line. Placing the skin flaps on stretch, I dissected the breast tissue from the subcutaneous tissue of the skin flaps at the level of New's fascia. I dissected medially to the sternum, superiorly to the clavicle, laterally to the anterior axillary line, and inferiorly to the inframammary fold. The breast tissue was then dissected off the pectoralis muscle and sent to Pathology for analysis to rule out carcinoma. Hemostasis was obtained with electrocautery. The wound was irrigated with saline. I then temporarily closed the incision with surgical clips until Dr. Hsu was finished with his axillary dissection and frozen section analysis. The frozen section showed the lymph nodes were negative. So Dr. Hsu was finished and I then proceeded with the bilateral breast reconstruction. His instruments were removed from the operative field. The patient was then reprepped and draped and I rescrubbed and regowned for the reconstruction. To get a reasonable size of implant for the reconstruction, I will place the implant in the prepectoral position and cover the implant completely with Alloderm. I will use X-thick Alloderm for both breasts. I first proceeded with the mastopexy bilaterally. After securing the vertical incision with surgical clips, I made horizontal markings at the level of the inframammary fold. Incisions were mad as the excess tissue was removed. The horizontal incision was then closed with surgical clips. Care was taken to keep the Tzone area soft and without tension. I will then decide on size of implant to fit the breast pocket without too much tension. I may decide to then go down one size to keep less tension on the Tzone area since the tissue is weaker because if her history of gastric bypass. In these patients, the subcutaneous tissue whipped topping supervisor skin junction is weaker than normal. I secured the Alloderm to the chest wall with 3-0 Vicryl sutures to the superior aspect, and both sides leaving the inferior side open for placement of the sizer and then the implant. This was done bilaterally. I measured the breast width at 15 cm. I initially tried a 535 ml sizer, high profile xtra. I secured the sizer in the Alloderm pocket with 3-0 Vicryl sutures in the inferior aspect. I then closed the vertical incision and horinzontal incision temporarily to make sure the closure is not too tight. This was done with 3-0 Vicryl running suture. The patient was then placed in the sitting position. Good symmetry was noted between the right breast and the left breast. There did not seem to be too much tension at the Tzone which is my biggest concern. There appeared to be more space in the breast pockets. So I increased the sizer all the way up to 650 ml. The 650 ml sizer was the ultra high profile. Once again good contour was noted and there was not too much tension on the Tzone area. I probably could have gone higher but did not want to risk too much tension on the Tzone area so I stopped at 650 ml. The patient was then placed in the supine position and the temporary sutures were removed. The excess tissue that was excised from the mastopexy was sent with the mastectomy specimens. On the left side part of the mastopexy excision included the biopsy site laterally. This portion was sent separately to Pathology. The sizers were removed and the breasts were irrigated with saline. Hemostasis was obtained with electrocautery. Two size 15 Shen drains were placed in each breast through separate stab incisions laterally and secured to the skin with 3-0 Nylon suture. One drain was used for the breast pocket and one was used for the axillary area. I then sprayed Stuart absorbable hemostat into both breast wounds, one vial for each breast. I then placed the [place] Smooth Round Ultra High Profile cohesive gel implants (650 ml) into both breast pockets underneath the Alloderm in the prepectoral position. The rest of the Alloderm was secured to the chest wall inferiorly. A malleable was placed to protect the implant during this point. The excess Alloderm was trimmed on both sides. more so on the left. I used about 300 cm2 Alloderm on each side. I then closed the mastopexy T incisions by first approximating the leading edge of the medial and lateral breast flaps to the midline of the inframammary fold with 2-0 Vicryl suture. The deep dermis and subcutaneous tissue of the horizontal and vertical incisions were approximated with 3-0 Monocryl interrupted sutures. The horizontal skin was approximated with 3-0 V-lock unidirectional barbed running subcuticular suture. The vertical skin was approximated with 4-0 Prolene simple running suture. This was topped off with Histoacryl skin tissue adhesive. Good contour was noted between the right breast and left breast. No vascular compromise was noted on the breast flaps bilaterally. Kerlix gauze dressing was applied followed by a surgical bra and an edna wrap. At the end of the procedure, there was no evidence of hematoma. The patient tolerated the procedure well and was sent to PACU in satisfactory condition. She will be admitted for a surgical observation overnight stay. She will keep her head elevated during the initial postop period. She will be discharged when steady on her feet with ambulation and tolerating po analgesia. She will be discharged home with her drains. They will be removed in 10-14 days. Grafts/Implants Used: [place] MemoryGel Breast Implants and Alloderm acellular dermal matrix graft - Complications None. - Admit VTE Documentation VTE Present on Admission: No VTE Mechan Device Prophylaxis: SCD's VTE Pharm Prophylaxis ordered?: Yes Reason prophylaxis not ordered:: Medical Contraindication Code Visit Surgery Charges CPT - 15082 ICD-10 - C50.912, F40.298, Z90.13, N65.1, N64.81, Z80.3, Z17.0, R63.4 93260 C50.912, F40.298, Z90.13, N65.1, N64.81 , Z80.3, Z17.0, R63.4 [id number] C50.912, F40.298, Z90.13, N65.1, N64.81 , Z80.3, Z17.0, R63.4 12600 C50.912, N64.81, F40.298, Z90.13, N65.1, Z80.3, Z17.0, R63.4 89903-57 C50.912, N64.81, F40.298, Z90.13, N65.1. Z80.3, Z17.0, R63.4 25112 C50.912, F40.298, Z90.13, N65.1, N64.81, Z80.3, Z17.0, R63.4 37572-94 C50.912, F40.298, Z90.13, N65.1, N64.81. Z80.3, Z17.0, R63.4
[2018-02-21] MEDS: Lactated Ringers 1,000 ML 60 ML IV (16:19)
--- NOTE | 2018-02-21 17:44 | PN.SURG_ITS ---
Patient Problems: Active and Suspected Problems (Last Reviewed 02/07/18 @ 14:10 by Luz Tafoya) Malignant neoplasm of upper-outer quadrant of left female breast (Acute) Subjective: Patient complaining of appropriate postoperative pain. - Physical Exam Vital Signs Temp Pulse Resp BP Pulse Ox 98.5 F 67 16 169/99 H 100 02/21/18 15:01 02/21/18 15:01 02/21/18 15:01 02/21/18 15:01 02/21/18 15:01 Oxygen Delivery Method Room Air Weight: 229 lb 8.019 oz Body Mass Index (BMI) 36.8 Intake and Output for Last 24 Hours 02/19/18 02/20/18 02/21/18 23:59 23:59 23:59 Intake Total 2500 / 2500 1947 / 1948 Output Total 992 / 992 1290 / 1290 Balance 1508 / 1508 658 / 658 Laboratory Tests Past 24 Hrs 02/21/18 02/21/18 06:00 06:00 WBC 8.6 RBC 3.81 L Hgb 11.0 L Hct 35.2 L MCV 92.4 MCH 28.9 MCHC 31.3 L RDW 13.3 RDW Differential 44.5 H Plt Count 264 MPV 10.0 Sodium 139 Potassium 3.7 Chloride 105 Carbon Dioxide 29.0 Anion Gap 5 BUN 10 Creatinine 1.08 H Estim Creat Clear Calc 64.17 Est GFR (MDRD) Af Amer 72 Est GFR (MDRD) Non-Af 59 L BUN/Creatinine Ratio 9.3 L Glucose 95 Calcium 7.6 L Prealbumin 16.7 L Medical Necessity - Tobacco Use Smoking Status: Never smoker Assessment/Plan Active and Suspected Problems (Last Reviewed 02/07/18 @ 14:10 by Luz Tfaoya) Malignant neoplasm of upper-outer quadrant of left female breast (Acute) [place] lymph node biopsies were negative so far. We will need to wait for final path report for final recommendations.
[2018-02-21] MEDS: Montelukast 10 MG Tablet PO (21:22)
[2018-02-21] MEDS: diazePAM 5 MG Tablet PO (22:33)
[2018-02-22 03:14] VITALS: BP 158/83; PULSE 66; RESP 16; TEMP 36.9; O2SAT 100
[2018-02-22] MEDS: oxyCODONE 5 MG Tablet 10 MG PO ×3 (03:20→13:28)
[2018-02-22] MEDS: Cefazolin 1 GM/50 ML BAG IV ×2 (05:45→13:23)
[2018-02-22] MEDS: Enoxaparin 40 MG/0.4 ML Syringe SC (05:45)
--- NOTE | 2018-02-22 06:02 | PCA ---
PT was walking in halls and refused to wear non skid socks.
[2018-02-22 07:33] VITALS: BP 165/78; PULSE 62; RESP 18; TEMP 37.6; O2SAT 100
[2018-02-22] MEDS: Folic Acid 1 MG Tablet PO (07:52)
[2018-02-22] MEDS: Loratadine 10 MG Tablet PO (07:52)
[2018-02-22] MEDS: Docusate Sodium 100 MG Capsule PO (07:52)
[2018-02-22] MEDS: Spironolactone 50 MG Tablet PO (07:52)
[2018-02-22] MEDS: Lactated Ringers 1,000 ML 60 ML IV (10:24)
--- NOTE | 2018-02-22 10:46 | CASEMGMT ---
RN CM Assessment completed. DC PLAN: HOME. -No dc needs identified @ this time. Pt states she has assistance at home and family who can help with transportation. Jim RAHMANN RN ACM
--- NOTE | 2018-02-22 12:58 | PCM.PN.SRG ---
Patient Problems: Active and Suspected Problems (Last Reviewed 02/07/18 @ 14:10 by Luz Tafoya) Malignant neoplasm of upper-outer quadrant of left female breast (Acute) Subjective: Postop #2 Patient resting comfortably. - Physical Exam General: Alert, Oriented x3 HEENT: PERRLA, EOMI Neck: Supple Lungs: Clear to auscultation Cardiovascular: Regular rate, Regular Rhythm Abdomen: Soft, Non-Distended Skin: Incision - Breasts soft and symmetrical. Incisions are dry and intact. Minor bruising on left breast at Tzone area. No clinical evidence of hematoma. Neurological: Cranial nerves II-XII grossly intact Psych/Mental Status: Normal Affect, Appropriate Vital Signs Temp Pulse Resp BP Pulse Ox 99.7 F H 62 18 165/78 H 100 02/22/18 07:33 02/22/18 07:33 02/22/18 07:33 02/22/18 07:33 02/22/18 07:33 Oxygen Delivery Method Room Air Weight: 229 lb 8.019 oz Body Mass Index (BMI) 36.8 Intake and Output for Last 24 Hours 02/20/18 02/21/18 02/22/18 23:59 23:59 23:59 Intake Total 2500 / 2500 3505 / 3505 629 / 629 Output Total 992 / 992 1405 / 1405 127 / 127 Balance 1508 / 1508 2100 / 2100 502 / 502 Drainage 430 ml yesterday, 127 ml today. Medical Necessity - Tobacco Use Smoking Status: Never smoker Assessment/Plan Active and Suspected Problems (Last Reviewed 02/07/18 @ 14:10 by Luz Tafoya) Malignant neoplasm of upper-outer quadrant of left female breast (Acute) 1. Left breast cancer. 2. Cancer phobia right breast. 3. Planned acquired absence bilateral breasts. 4. Planned disproportion reconstructed breasts. 5. Breast ptosis. 6. Family history of breast cancer. 7. Estrogen receptor positive status. 8. Excessive weight loss from gastric bypass procedure. 9. s/p injection 5 cc lympozuren blue and left masectomy and left sentinel lymph node biopsy by Dr. Hsu and prophylactic mastectomy right breast and immediate bilateral breast reconstruction with bilateral placement of prepectoral cohesive gel implants (650 ml each side) and placement of Alloderm Select acellular dermal matrix graft (320 cm2 each side) and immediate bilateral breast reconstruction with bilateral mastopexy by Dr. Aquino. Shoulder discomfort is better. Breasts are soft and symmetrical. Incisions are dry and intact. Minor bruising seen at Tzone area left breast. Will observe as an outpatient. Keep head elevated. Ambulate with assist. More steady on her feet. Prealbumin was 16.7. Encourage nutritional supplementation with protein to help the healing process. Patient tolerating po analgesia. Discharge home today. Wrote script for Cefadroxil until drains are removed (28 tabs). Wrote script for Percocet for pain (50 tabs). Has Valium at home. Wrote scripts for Phenergan for nausea (30 tabs) and a refill and Colace for constipation ([address] tabs[address] Hsu one week. I will be out of town. Followup to see me in two weeks for drain removal.
--- NOTE | 2018-02-22 13:14 | PCM.DC ---
- Discharge Diagnoses Current Active Problems: Current Active and Chronic Problems (Last Reviewed 02/07/18 @ 14:10 by Luz Tafoya) Malignant neoplasm of upper-outer quadrant of left female breast (Acute) You will use the following diet at home:: No restrictions Discharge Activity: May not drive while taking narcotic pain medications., May Not Shower - until the drains are removed in the office. May shower in (days): 14 - after drains are removed. May resume sexual activity in: 10-14 days Weight Bearing Status: Weight bearing as tolerated Lifting Restrictions: 20 lbs. Keep extremity elevated above heart level: - - elevate head. Call your doctor if your incision/area has: Continuous Slow Oozing, Sudden Increased Bleeding, Increased Pain/ Swelling, Increased Redness, Foul Smelling Discharge, Swelling at the incision site Call your doctor if you observe: Fever of 101 or Higher, Coldness, Increased Pain, Shortness of breath, Chest pain, Calf discomfort, Uncontrolled pain Suture Line Care: - - dry gauze daily. Change Dressing in (Days):: 1 - dry gauze daily. Cleanse incision/area with: - - may get incisions wet in the shower after the drains are removed in the office. Drain: Suction - nish drain x4 to bulb suction. empty and record output daily. Allergies/Adverse Reactions: Allergies No Known Allergies Allergy (Verified 02/13/18 14:29) Medications to take at Discharge ergocalciferol (vitamin D2) 2,000 unit tablet 2,000 unit PO QWEEK 01/18/18 fexofenadine 60 mg tablet 180 mg PO DAILY 01/18/18 folic acid 1 mg tablet 1 mg PO QDAY 01/18/18 montelukast 10 mg tablet 10 mg PO QHS 01/18/18 spironolactone 50 mg tablet 50 mg PO QDAY 01/18/18 Omeprazole [Prilosec] 20 mg PO DAILY PRN 02/07/18 diazepam 5 mg tablet 5 mg PO 4X/DAY PRN #30 tab 02/08/18 Budesonide/Formoterol 160/4.5 [Symbicort 160/4.5 Mcg Inhaler (SP)] 2 puff INHALATION PRN PRN 02/13/18 Cefadroxil [Duricef] 500 mg PO BID #28 cap 02/22/18 Docusate Sodium [Colace] 100 mg PO BID #60 cap 02/22/18 Loratadine [Claritin] 10 mg PO DAILY tablet 02/22/18 Oxycodone HCl/Acetaminophen [Percocet 5/325] 1 - 2 tab PO 4X/DAY PRN PRN 7 Days #50 tab 02/22/18 proMETHazine tablet [Phenergan tablet] 25 mg PO 4X/DAY PRN PRN #30 tab 02/22/18 The following prescriptions were given: Oxycodone HCl/Acetaminophen [Percocet 5/325] 1 - 2 tab PO 4X/DAY PRN PRN 7 Days #50 tab PRN Reason: Pain proMETHazine tablet [Phenergan tablet] 25 mg PO 4X/DAY PRN PRN #30 tab PRN Reason: Nausea/Vomiting Cefadroxil [Duricef] 500 mg PO BID #28 cap Docusate Sodium [Colace] 100 mg PO BID #60 cap Primary Care Physician: Radha Benito PA-C [Primary Care Provider] - Please Follow Up With: Mahendra Hsu MD When: one week. call [phone] for appt. Please Follow Up With: Sundar Aquino MD When: 2 weeks. call [phone] for appt. Proposed Discharge Date: 02/22/18
--- NOTE | 2018-02-22 13:26 | CPS ---
Pt refused albuterol and pulmicort breathing tx's today, stating she takes her inhalers prn at home and will call if she needs them.
[2018-02-22 13:30] VITALS: BP 171/79; PULSE 64; RESP 18; TEMP 37.4; O2SAT 100
--- NOTE | 2018-02-22 16:13 | NURSING ---
[address] Aquino that blood pressure is 171/79, no new orders, may go home.
== END 2018-02-22 15:15 | disposition home or self-care (01) ==
LOC: SDC 15:42
PROVIDERS: Surgery; Admitting Provider Surgery; Family Provider Family Medicine; PCP Family Medicine; Visit Provider Surgery
PROC: (CPT 19307; principal; 2018-02-20 08:10)
PROC: (CPT 19303; 2018-02-20 08:10)
PROC: (CPT 15777; 2018-02-20 08:10)
DX: C50.412 Malignant neoplasm of upper-outer quadrant of left female breast (principal); N65.1 Disproportion of reconstructed breast; N64.81 Ptosis of breast; F45.29 Other hypochondriacal disorders; E55.9 Vitamin D deficiency, unspecified; J45.909 Unspecified asthma, uncomplicated; I10 Essential (primary) hypertension; G47.30 Sleep apnea, unspecified; K21.9 Gastro-esophageal reflux disease without esophagitis; Z85.3 Personal history of malignant neoplasm of breast; Z98.84 Bariatric surgery status; Z79.899 Other long term (current) drug therapy; Z17.0 Estrogen receptor positive status [ER+]; Z79.51 Long term (current) use of inhaled steroids; R01.1 Cardiac murmur, unspecified
CPT/HCPCS: 00400; 15777; 19303 ×2; 19340; 38525; 36415; 80048; 81025; 84134; 85027; 88305; 88307; 88331; 88332; 88341; 88342; 94640; 96365; 96366; 96372; 96375; 97802; 99218; J7120; A4216; G0378; G0379; J2405; Q9968

== ENCOUNTER 2018-02-28 20:27 | Emergency (ER) | payer BC, SELFPAY ==
[2018-02-28 20:28] VITALS: BP 134/81; PULSE 75; RESP 16; TEMP 36.9; O2SAT 100; BMI 36.6
--- NOTE | 2018-02-28 20:51 | US_ITS ---
STUDY: VENOUS DOPPLER ULTRASOUND - LEFT LOWER EXTREMITY REASON FOR EXAM: Female, 42 years old. Calf pain TECHNIQUE: Ultrasound evaluation of the deep vein system to include salazar-scale imaging and compression was performed. Salazar-scale imaging and Doppler sonographic evaluation, including duplex spectral analysis and qualitative color flow sonography, was performed. COMPARISON: None. FINDINGS: Common Femoral Vein: Normal compression, spontaneity and augmentation. Normal color Doppler. Common Femoral Vein/Greater Saphenous Junction: Normal compression, no internal echoes are seen. Deep Femoral Vein: Not imaged Femoral Proximal: Normal compression, no internal echoes are seen. Femoral Middle: Normal compression, spontaneity and augmentation. Normal color Doppler. Femoral Distal: Normal compression, no internal echoes are seen. Popliteal Vein: Normal compression, spontaneity and augmentation. Normal color Doppler. Posterior Tibial Vein: Normal compression, no internal echoes are seen. Peroneal Vein: Normal compression, no internal echoes are seen. US/Venous Duplex Imag/Limited/Uni IMPRESSION: There is no evidence of deep venous thrombosis. Electronically Signed: Joseph Reeder MD at 21:42 EDT , Service support ,
--- NOTE | 2018-02-28 22:52 | ED.VISSUMM ---
- ER Visit Summary Date of Service: 02/28/18 Chief Complaint: Leg pain History of Present Illness: The patient is a 42 F who presents with pain and swelling of her left leg that she noticed today. Patient states the pain is worse over the left calf area. Patient describes the pain as sharp. Patient states the pain is worse with standing and stepping on her left leg. Patient states the pain improves with rest. Patient had recent bilateral mastectomy with reconstruction 8 days ago. Patient is concerned over possible DVT. Patient denies any chest pain or shortness of breath. Patient denies any nausea or vomiting. Physical Examination: Vital signs are stable. Patient is afebrile. Patient is in no acute distress. Heart was regular rate and rhythm. Lungs are clear and equal bilaterally. Abdomen is soft nontender. There is some mild tenderness over the left calf. There is no pitting edema noted. Pedal pulses are equal bilateral. Sensation was intact to light touch bilaterally in the upper and lower extremities. The remaining physical exam is within normal limits. Test Results: Venous duplex of the left lower extremity was obtained. There is no evidence of DVT. Treatment Plan: Patient was instructed to keep her left leg elevated. Patient was instructed to follow-up with her primary care physician and surgeon as scheduled. Patient understood and was agreeable with the plan. All questions were answered. Disposition: Discharged home Impression: Left leg pain This note was generated with [employer] dictation software. It may contain incorrect words, spelling, and punctuation that were not noted in review of the chart prior to signing ED Disposition - Plan for ED Patient: Disposition: Home or Assisted Living Chief Complaint: Lower Extremity Injury Diagnosis: Left leg pain Instructions: ED Strain Muscle Ext Referrals: Radha Benito PA-C [Primary Care Provider] -
[2018-02-28 23:16] VITALS: BP 140/95; PULSE 60; RESP 17; O2SAT 96
== END 2018-02-28 23:17 | disposition home or self-care (01) ==
PROVIDERS: Emergency Provider Emergency Medicine; Family Provider Family Medicine; PCP Family Medicine
DX: M79.662 Pain in left lower leg (principal); S86.912A Strain of unspecified muscle(s) and tendon(s) at lower leg level, left leg, initial encounter; Z90.13 Acquired absence of bilateral breasts and nipples; Z85.3 Personal history of malignant neoplasm of breast; Z79.51 Long term (current) use of inhaled steroids; Z79.891 Long term (current) use of opiate analgesic; Z79.899 Other long term (current) drug therapy; X58.XXXA Exposure to other specified factors, initial encounter; Y93.89 Activity, other specified; Y92.89 Other specified places as the place of occurrence of the external cause; Y99.8 Other external cause status
CPT/HCPCS: 93971; 99282

== ENCOUNTER → 2018-03-15 08:20 | Outpatient (CLI) | payer BC, SELFPAY ==
--- NOTE | 2018-03-15 08:20 | DT_ITS ---
This patient was seen during an EMR downtime March 12, 2018 - March 19, 2018. This patient may have a combination of paper and electronic documentation or all paper documentation. All documentation is viewable within the e-chart portion of [facility] for each patient visit.
--- NOTE | 2018-03-15 08:30 | NM_ITS ---
CLINICAL: Female, 42 years old. Left breast cancer WHOLE BODY NUCLEAR BONE SCAN TECHNIQUE: Following the IV administration of 26.8 mCi of Tc MDP, whole body bone imaging was performed with a gamma camera following a three hour delay. COMPARISON STUDIES : NM - None. CR - Not available for review at this time. CT - Not available for review at this time. MR - Not available for review at this time. US - Not available for review at this time. FINDINGS: There is a normal concentration of radiopharmaceutical throughout the axial and appendicular skeletal system without either a focal decrease or increase in uptake. Mild degenerative changes bilateral knees and ankles. NM/Bone Scan Whole Body IMPRESSION: No evidence of metastatic disease. Probable degenerative changes bilateral knees and ankles. Electronically Signed: Andrés Coles DO at 10:30 EDT , Service support ,
== END ==
PROVIDERS: Family Provider Family Medicine; PCP Family Medicine; Visit Provider Internal Medicine Medical Oncology
DX: C50.412 Malignant neoplasm of upper-outer quadrant of left female breast (principal)
CPT/HCPCS: 78306

== ENCOUNTER → 2018-03-20 07:19 | Outpatient (CLI) | payer BC, SELFPAY ==
--- NOTE | 2018-03-20 07:20 | CT_ITS ---
STUDY: CT ABDOMEN AND PELVIS WITH CONTRAST REASON FOR EXAM: Female, 42 years old. Postop pain, history of breast cancer with bilateral mastectomy. RADIATION DOSAGE (If Supplied By Facility): CTDIvol = ( 17.72 ) mGy, DLP = ( 1906.5 ) mGycm TECHNIQUE: Transaxial images were obtained from the dome of the diaphragm to the symphysis pubis with oral contrast. 100 ml of Isovue 300 contrast was administered. Sagittal and coronal images were reconstructed. Individualized dose optimization techniques were used for this CT. COMPARISON: None. FINDINGS: The visualized lung bases are unremarkable. The visualized portions of the heart are within normal limits. A right breast prosthesis is noted in the subcutaneous tissue of the right chest wall with associated fluid which is likely postoperative in nature. Follow-up ultrasound could be performed to assure resolution. Normal liver. There are surgical clips in the gallbladder fossa consistent with a prior cholecystectomy. Normal spleen. Normal pancreas. Normal bilateral adrenal glands. Normal right kidney. Normal left kidney. Normal visualized stomach. Normal small intestine. Normal colon. The appendix is visualized and appears normal. Appendix best seen on coronal recon image 67. Normal abdominal aorta. Normal inferior vena cava. Normal retroperitoneum. Normal urinary bladder. Normal-appearing uterus. There is a small amount of free fluid in the dependent pelvis and a 2.5 cm right ovarian cyst is noted. Normal abdominal wall. Normal osseous structures. There is disc space narrowing and degenerative changes noted at L5/S1 CT/Abdomen/Pelvis WITH Contrast IMPRESSION: No suspicious solid organ abnormality No CT evidence of an acute inflammatory process within the abdomen. Normal appendix visualized. Small amount of free fluid in the dependent cul-de-sac, likely physiologic Inferior aspect of a right breast prosthesis noted there is fluid surrounding the lateral aspect of the breast prosthesis, likely postoperative seroma follow-up ultrasound could be performed to assure resolution Electronically Signed: Jcarlos Rivas MD at 10:19 EDT , Service support ,
--- NOTE | 2018-03-20 07:21 | CT_ITS ---
STUDY: CT CHEST WITH CONTRAST REASON FOR EXAM: Female, 42 years old. Hypertension, chest pain RADIATION DOSAGE (If Supplied By Facility): CTDIvol = ( 17.72 ) mGy, DLP = ( 1906.5 ) mGycm TECHNIQUE: Transaxial imaging was performed following intravenous administration of 100 ml of Isovue 300 contrast material. Individualized dose optimization techniques were used for this CT. COMPARISON: None. FINDINGS: Patient has bilateral breast implants. There is minimal amount of fluid around the periphery of both breast implants, slightly more prominent around the right side, likely postoperative. The lungs are normal. There is no demonstrated pleural abnormality. Normal heart and pericardium. There are scattered subcentimeter axillary and mediastinal lymph nodes. Normal hilar regions. Normal enhanced pulmonary arteries. Normal aorta arch and descending thoracic aorta. Normal osseous structures. Cuts through the upper abdomen show evidence of previous gastric bypass surgery and a small retrocardiac hiatal hernia CT/Chest WITH Contrast IMPRESSION: No acute pulmonary process No suspicious axillary, mediastinal, or perihilar adenopathy Likely postsurgical fluid around the periphery of the breast implants Postsurgical changes at the GE junction Electronically Signed: Jcralos Rivas MD at 8:55 EDT , Service support ,
== END ==
PROVIDERS: Family Provider Family Medicine; PCP Family Medicine; Visit Provider Internal Medicine Medical Oncology
DX: C50.412 Malignant neoplasm of upper-outer quadrant of left female breast (principal)
CPT/HCPCS: 71260; 74177; Q9967

== ENCOUNTER → 2018-03-29 20:55 | Outpatient (CLI) | payer BC, SELFPAY | PROVIDERS: Family Provider Family Medicine; PCP Family Medicine; Visit Provider Surgery | DX: T81.89XA Other complications of procedures, not elsewhere classified, initial encounter (principal); C50.412 Malignant neoplasm of upper-outer quadrant of left female breast; R63.4 Abnormal weight loss; N64.81 Ptosis of breast; N65.1 Disproportion of reconstructed breast; F40.298 Other specified phobia; Z90.13 Acquired absence of bilateral breasts and nipples | CPT/HCPCS: 87070; 87075; 87077; 87186; 87205 ==

== ENCOUNTER 2018-08-27 06:06 | Day surgery (SDC) | payer BC, SELFPAY ==
[2018-06-13 16:06] VITALS: BMI 38.7
[2018-08-22 14:58] LABS: Hematocrit 39.9 % (37-47); Hemoglobin 12.3 g/dl (12.0-15.0); Mean Corp Hgb Conc 30.8 g/gl (32-36); Mean Corpuscular Hgb 26.8 pg (27.0-32.0); Mean Corpuscular Volume 86.9 fL (81-99); Mean Platelet Vol. 10.4 fl (6.2-12.0); Platelet Count 275 K/mm3 (150-450); RBC Distribution Width CV 15.4 % (11.6-14.6); RBC Distribution Width SD 49.4 fl (35.1-43.9); Red Blood Count 4.59 M/mm3 (4.2-5.4); White Blood Count 7.6 K/mm3 (4.4-11.0)
[2018-08-22 15:02] LABS: Scan Indicated on CBC? Y/N NO
[2018-08-22 15:20] LABS: Partial Thromboplast Time 28.6 Seconds (24.1-36.2); Prothrombin Time (Protime)PT. 13.2 SECONDS (11.7-14.9)
[2018-08-22 15:25] LABS: Creatinine, Serum 0.97 mg/dL (0.55-1.02); EST Glomerular Filtration Rate 67 mL/min (>60); Est Glom Filt Rate - Afr Amer 81 mL/min (>60)
[2018-08-22 15:35] LABS: Pregnancy, Serum, hCG Quali. NEGATIVE Negative (0-9 Nonpreg)
[2018-08-23 08:49] LABS: ALB/GLOB Ratio 0.9 RATIO (0.9-2.4); AST(SGOT) 22 U/L (15-37); Alanine Aminotransfer ALT/SGPT 18 U/L (13-56); Albumin, Serum 3.5 g/dL (3.2-5.0); Alkaline Phosphatase 84 U/L (45-117); Anion Gap 6 (5-15); BUN 12 mg/dL (7-18); BUN/Creat Ratio 12.3 RATIO (10-20); Calcium,Total 8.2 mg/dL (8.5-10.1); Chloride 107 mmol/L (98-107); Glucose 88 mg/dL (74-106); Potassium 4.2 mmol/L (3.5-5.1); Protein, Total 7.5 g/dL (6.4-8.2); Sodium Level 139 mmol/L (136-145)
[2018-08-27] VITALS (11 sets, daily range): BP systolic 124–143; BP diastolic 70–99; PULSE 59–96; RESP 14–18; TEMP 36.3–37.3; O2SAT 96–100; BMI 38.3
--- NOTE | 2018-08-27 | HYST_PTH ---
PATIENT: KOURTNEY TORRE LOC: [facility] – [place] U#:[id number] AGE/SX: 43/F ROOM: RE08/27/[address]: Dr. Favian Lacey MD : 1975 BED: DIS: 08/28/2018 SPEC #: [id number] RECD: 08/27/18 13:34 STATUS: WILD FLO #: [id number] DELMA: 08/27/18 00:[address]: Favian Lacey DEPT: SURGICAL PATHOLOGY RECD BY: Rafa Campos ENTERED: 08/27/18 13:34 SP TYPE: HYSTERECT OTHR DR: Radha Benito PA-C Tissues: Uterus, NOS Procedures: Surgery Specimen Level V HEADER OPERATION: Robotic-assisted vaginal hysterectomy, bilateral salpingo-oophorectomy PRE-OP DIAGNOSIS: ER positive status and malignant neoplasm breast TISSUE SUBMITTED: Uterus, cervix, bilateral fallopian tubes and bilateral ovaries MICROSCOPIC DIAGNOSIS Uterus, cervix, bilateral fallopian tubes and bilateral ovaries: Cervix - chronic inflammation and focal squamous metaplasia. Endometrium - secretory endometrium. Myometrium - no pathologic diagnosis. Bilateral fallopian tubes - no pathologic diagnosis. Right ovary - physiologic corpus luteal and follicular cysts. Left ovary - no pathologic diagnosis. Left paratubal cyst. SJ:rg 08/28/18 MICROSCOPIC DESCRIPTION Slides are reviewed. GROSS DESCRIPTION Received in fixative is one container labeled with the patient's name and designated uterus, cervix, bilateral fallopian tubes and bilateral ovaries. The specimen consists of a hysterectomy specimen consisting of uterus with cervix and attached bilateral fallopian tubes and ovaries. The uterus with cervix weighs 73 gm and measures 8 x 5.5 x 4 cm. The serosal surface is [place], glistening. The ectocervical mucosa is unremarkable. The external os is oval in contour. The endocervical canal measures 3 cm in length and the endocervical mucosa is [place], glistening and unremarkable. The triangular endometrial cavity measures 4 cm in length and up to 1.5 cm in width. The endometrium is pink, congested without any mass lesion and measures <0.1 cm in thickness. Sections of the uterine wall do not reveal any mass lesion and it measures up to 2.5 cm in thickness. The right fallopian tube measures 6.5 cm in length and 0.5 cm in diameter. The fimbrial end is identified. No tubo-ovarian adhesions are noted. The soft to cystic right ovary measures 2.5 x 2.5 x 1.5 cm. Sections reveal a corpus luteum measuring 1.2 cm in greatest dimension and a cyst filled with bloody fluid measuring 1 cm in greatest dimension. The left fallopian tube measures 7 cm in length and 0.6 cm in diameter. A paratubal cyst is noted measuring 1 cm in greatest dimension. The left ovary measures 2.5 x 2.5 x 1 cm. Sections reveal unremarkable cut surfaces. [employer] sections are submitted in 11 cassettes as follows: 1 - anterior cervix, 2 - posterior cervix, 3 & 4 - anterior uterine wall, 5 & 6 - posterior uterine wall, 7 - right fallopian tube, 8 & 9 - right ovary, 10 - left fallopian tube, 11 - left ovary. / SJ:rg 08/27/18 TC:5 CPT: 26192
[2018-08-27] MEDS: Gabapentin 600 MG Tablet PO (06:34)
[2018-08-27] MEDS: Scopolamine 1mg/72hr Patch 1 PATCH TRANSDERM. (06:35)
[2018-08-27] MEDS: Acetaminophen 500 MG Tablet 1000 MG PO ×2 (06:35→19:43)
[2018-08-27 06:40] LABS: Internal QC Validated? YES +Cl - CLEAR BKGD; Pregnancy, Urine Negative Negative
[2018-08-27 07:05] LABS: Bedside Glucose 84 mg/dL (70-110)
[2018-08-27] MEDS: Lidocaine/D5W 2,000 MG/250 ML IV.SOLN 32.31 MG IV (07:35)
--- NOTE | 2018-08-27 07:39 | PCM.OPRPT ---
Report of Operation Date of Procedure: 08/27/18 Pre-Operative Diagnosis: Estrogen Receptor Positive Breast Cancer Post-Operative Diagnosis: Estrogen Receptor Positive Breast Cancer Surgery/Procedure Performed:: Robotic Assisted Vaginal Hysterectomy and Bilateral Salpingo-Oophorectomy Description of Surgical Findings:: 8 cm uterus with normal-appearing fallopian tubes and ovaries. core analysis operator: Monroe Lopez Type of Anesthesia:: General Anesthesiologist: Isreal Ferreira Specimen's removed: Uterus and bilateral tubes and ovaries Drains: Gregg to straight drain Estimated Blood Loss (mL): Minimal Fluids Replaced: Crystalloid Description of Procedure: Indication: This is a 43 year old patient who has estrogen receptor positive breast cancer. Her oncologist felt that removal of her ovaries would be helpful. The patient has been counseled regarding the risks, benefits and alternatives of this procedure including the possibility of bleeding, infection, and injury to surrounding structures such as bowel bladder and all questions were answered. Procedure: Pt taken to the operating room where after induction of general anesthesia the patient was prepped and draped in the usual sterile fashion and placed on a non-slip Huggy-u-vac device. Trendendelenburg test was satisfactory. Bladder was drained of urine with a Gregg catheter which was left in place. Anterior cervix grasped and cervix was dilated to about 3-4 mm. Uterus sounded to 7 cms. 0-Vicryl suture was placed at the 3:00 and 9:00 position of the cervix. A small V-care device was then placed in the uterus to allow uterine manipulation and attention was turned to the laparoscopic portion of the procedure. Ropivocaine 0.5% was injected approximately 2 cm superior to the umbilicus and an 8 mm robotic camera port was introduced directly with intraperitoneal placement confirmed with insufflation. 8 mm robotic side ports were introduced under direct visualization approximately 11 cm lateral and 2 cm inferior to the umbilical port. A 5 mm left upper quadrant port was introduced and airseal insufflation with CO2 was started. The above findings were noted. Robot was docked without difficulty and attention turned to the robotic portion of the procedure. Approximately 27cc of Ropivicaine was used. Bilateral infundibulocal ligaments/mesosalpinx were ligated with 45 cadena bipolar coagulation to the level of the round ligament. The posterior aspect of the cervix was identified and then opened for about 1 cm using 25 watt monopolar cautery identifying the V-care device which had been placed vaginally. Bladder flap was opened and divided to the level of the round ligaments using monopolar cautery. Progressive bites were then ligated on each side of the cervix with 35 cadena bipolar cautery to the uterine arteries. The anterior vaginal mucosa was then entered and cervix circumscribed with monopolar cautery. Uterus and attached ovaries and tubes were then removed through the vagina. Vaginal cuff was closed first with 0-Vicryl Isaac stitches placed at each angle followed by closure of the mid-cuff with 0-Monocryl V-lock suture in two layers. Pelvis was copiously irrigated with saline and the right and left ureter gleason noted to peristalse. Robot was undocked and trocars were removed with as much gas as possible. Incisions were closed with 4-0 Monocryl subcuticular sutures and incisions covered with steri-strips and opsite dressing. The patient tolerated the procedure well and was taken to the recovery room in satisfactory condition. Sponge, instruments and needle counts were all correct. There were no apparent complications of the surgery. Cefotan 2 gms IV was given prior to the procedure. Estimated Blood Loss: Minimal Specimen to Pathology: Uterus and bilateral tubes and ovaries Grafts/Implants Used: None - Complications None - Admit VTE Documentation VTE Present on Admission: Yes VTE Mechan Device Prophylaxis: SCD's, Knee High SHORTY Hose VTE Pharm Prophylaxis ordered?: Yes
--- NOTE | 2018-08-27 07:44 | DCINST_ITS ---
Discharge Diet: No Restrictions Discharge Activity: Return to Normal Activity, May Not Drive - while taking narcotic pain medications., May Shower, May Take a Tub Bath May resume sexual activity in: 6-8 weeks Call your doctor if your incision/area has: Continuous Slow Oozing, Sudden Inc reased Bleeding, Increased Pain/ Swelling, Increased Redness, Foul Smelling Discharge Call your doctor if you observe: Fever of 101 or Higher, Inability to urinate, Inability to have a bowel movement, Using more than one pad per hour Allergies/Adverse Reactions: Allergies No Known Allergies Allergy (Verified 08/20/18 14:38) Medications to take at Discharge montelukast 10 mg tablet 10 mg PO QHS 01/18/18 spironolactone 50 mg tablet 50 mg PO QDAY 01/18/18 Omeprazole [Prilosec] 20 mg PO DAILY PRN 02/07/18 Budesonide/Formoterol 160/4.5 [Symbicort 160/4.5 Mcg Inhaler (SP)] 2 puff INHALATION PRN PRN 02/13/18 Sertraline HCl [Zoloft] 12.5 mg PO DAILY 03/26/18 Tamoxifen Citrate [Nolvadex] 20 mg PO DAILY #30 tab 03/26/18 Albuterol IH (ProAir) [Proair Hfa (SP)Vent Pts] 1 - 2 puff INHALATION Q6H PRN PRN 08/20/18 Ferrous Sulfate [Slow Fe] 142 mg PO DAILY 08/20/18 Fexofenadine/Pseudoephedrine [Oralia-D 12 Hour Tablet] 1 each PO DAILY 08/20/18 Tolterodine Tartrate [Detrol] 2 mg PO DAILY 08/20/18 Docusate Sodium [Colace] 100 mg PO BID PRN PRN #60 cap 08/27/18 Oxycodone [Oxyir] 5 mg PO Q6H PRN PRN 7 Days #20 tab 08/27/18 The following prescriptions were given: Oxycodone [Oxyir] 5 mg PO Q6H PRN PRN 7 Days #20 tab PRN Reason: Severe Pain (-07/18) Docusate Sodium [Colace] 100 mg PO BID PRN PRN #60 cap PRN Reason: Constipation Primary Care Physician: [place],Radha, PA-C [Primary Care Provider] - Test Results: Test results from this visit will be discussed in further detail at your follow- up appointment, if applicable. Please Follow Up With: Favian Lacey MD When: 2-3 weeks
[2018-08-27] MEDS: Lubricating Jelly 60 GM Tube 30 GM TOPICAL (07:58)
[2018-08-27] MEDS: Ropivacaine 0.5% 30 ML Vial (07:59)
[2018-08-27] MEDS: Ketorolac 30 MG/ML Syringe IV ×3 (09:16→22:14)
[2018-08-27] MEDS: Dextrose 5%-Lactated Ringers 1,000 ML 150 ML IV (16:44)
[2018-08-27] MEDS: Enoxaparin 30 MG/0.3 ML Syringe SC (18:09)
[2018-08-27] MEDS: Montelukast 10 MG Tablet PO (22:13)
[2018-08-27] MEDS: Tamoxifen 10 MG Tablet 20 MG PO (22:58)
[2018-08-28 03:06] VITALS: BP 124/67; PULSE 68; RESP 14; TEMP 36.7; O2SAT 96
[2018-08-28] MEDS: Ketorolac 30 MG/ML Syringe IV ×2 (03:10→09:36)
[2018-08-28] MEDS: 0.9% NaCl Peripheral Flush Adult/Peds IV (03:12)
[2018-08-28] MEDS: Pantoprazole Sodium 20 MG Tablet PO (04:28)
[2018-08-28 06:53] LABS: Hematocrit 34.3 % (37-47); Hemoglobin 10.7 g/dl (12.0-15.0); Mean Corp Hgb Conc 31.2 g/gl (32-36); Mean Corpuscular Volume 86.6 fL (81-99); Mean Platelet Vol. 10.9 fl (6.2-12.0); Platelet Count 262 K/mm3 (150-450); RBC Distribution Width CV 14.9 % (11.6-14.6); RBC Distribution Width SD 46.9 fl (35.1-43.9); Red Blood Count 3.96 M/mm3 (4.2-5.4); White Blood Count 12.3 K/mm3 (4.4-11.0)
[2018-08-28 07:00] LABS: Scan Indicated on CBC? Y/N NO
[2018-08-28 07:10] LABS: Creatinine, Serum 1.03 mg/dL (0.55-1.02); EST Glomerular Filtration Rate 62 mL/min (>60); Est Glom Filt Rate - Afr Amer 76 mL/min (>60); Estimated Creatinine Clearance 66.61 ml/min
[2018-08-28 07:48] VITALS: BP 134/88; PULSE 75; RESP 18; TEMP 36.8; O2SAT 99
[2018-08-28 08:41] VITALS: O2SAT 97
--- NOTE | 2018-08-28 08:56 | PCM.PN.OB ---
Subjective: Patient without complaints. Tolerating diet well. Positive flatus. Ready to go home. Minimal vaginal bleeding. - Physical Exam Vital Signs Temp Pulse Resp BP Pulse Ox 98.3 F 75 18 134/88 H 97 08/28/18 07:48 08/28/18 07:48 08/28/18 07:48 08/28/18 07:48 08/28/18 08:41 Oxygen Flow Rate (L/min) 6 Oxygen Delivery Method Room Air Weight: 237 lb 7.005 oz Body Mass Index (BMI) 38.3 Intake and Output for Last 24 Hours 08/26/18 08/27/18 08/28/18 23:59 23:59 23:59 Intake Total 2803 / 2803 1788 / 1788 Output Total 1900 / 1900 1100 / 1100 Balance 903 / 903 688 / 688 Laboratory Tests Past 24 Hrs 08/28/18 08/28/18 05:55 05:55 WBC 12.3 H RBC 3.96 L Hgb 10.7 L Hct 34.3 L MCV 86.6 MCH 27.0 MCHC 31.2 L RDW 14.9 H RDW Differential 46.9 H Plt Count 262 MPV 10.9 Creatinine 1.03 H Estim Creat Clear Calc 66.61 Est GFR (MDRD) Af Amer 76 Est GFR (MDRD) Non-Af 62 Wounds are clean, dry, intact. Good urine output. Hemoglobin and creatinine okay. Medical Necessity - Tobacco Use Smoking Status: Never smoker Assessment/Plan All Active Problems (Last Reviewed 06/04/18 @ 14:34 by Luz Tafoya) Nonhealing surgical wound (Acute) Malignant neoplasm of upper-outer quadrant of left female breast (Acute) Estrogen receptor positive status (ER+) (Acute) Disproportion of reconstructed breast (Acute) Acquired absence of bilateral breasts and nipples (Acute) Cancer phobia (Acute) S/P cholecystectomy (Acute) S/P gastric bypass (Acute) S/P (Acute) Ulcer (Acute) Diarrhea (Acute) Sleep apnea (Acute) Heart murmur (Acute) Left breast lump (Acute) Asthma (Acute) Sinusitis (Acute) Allergic rhinitis (Acute) Vitamin D deficiency (Acute) Vitamin B 12 deficiency (Acute) Hypothyroidism (Acute) Doing well postoperative day #1 status post robotic assisted vaginal hysterectomy and bilateral salpingo-oophrectomy. We will released to home with routine instructions.
[2018-08-28] MEDS: Loratadine 10 MG Tablet PO (09:37)
[2018-08-28] MEDS: Spironolactone 50 MG Tablet PO (09:37)
[2018-08-28] MEDS: SERTRALINE HCL 25 MG TABLET 12.5 MG PO (09:38)
[2018-08-28] MEDS: Tolterodine Tartrate 2 MG CAP.SA PO (09:38)
[2018-08-28 11:45] VITALS: BP 134/88; PULSE 75; RESP 18; TEMP 36.8; O2SAT 99
== END 2018-08-28 11:53 | disposition home or self-care (01) ==
LOC: SDC 06:07 → AC 06:07 → MS3 08:53
PROVIDERS: Anesthesiology; Family Provider Family Medicine; PCP Family Medicine; Referring Provider Obstetrics & Gynecology; Visit Provider Obstetrics & Gynecology
PROC: 0UT94ZZ Resection of Uterus, Percutaneous Endoscopic Approach (ICD-10-PCS; CPT 58552; principal; 2018-08-27 07:10)
DX: N87.9 Dysplasia of cervix uteri, unspecified (principal); N72 Inflammatory disease of cervix uteri; N83.11 Corpus luteum cyst of right ovary; N83.01 Follicular cyst of right ovary; N83.8 Other noninflammatory disorders of ovary, fallopian tube and broad ligament; C50.912 Malignant neoplasm of unspecified site of left female breast; K21.9 Gastro-esophageal reflux disease without esophagitis; D64.9 Anemia, unspecified; I10 Essential (primary) hypertension; J45.909 Unspecified asthma, uncomplicated; Z90.13 Acquired absence of bilateral breasts and nipples; Z17.0 Estrogen receptor positive status [ER+]; Z79.51 Long term (current) use of inhaled steroids; Z79.899 Other long term (current) drug therapy; Z98.84 Bariatric surgery status
CPT/HCPCS: 58552; 36415; 80053; 81025; 82565; 82962; 84703; 85027; 85610; 85730; 86850; 86900; 88307; J7050; J7120; A4216; J2405

== ENCOUNTER 2025-04-09 08:41 | Day surgery (SDC) | payer BC, SELFPAY ==
[2025-04-09] VITALS (8 sets, daily range): BP systolic 131–153; BP diastolic 85–94; PULSE 56–70; RESP 16–17; TEMP 36.4–36.5; O2SAT 95–99; BMI 35.9
--- NOTE | 2025-04-09 08:54 | PCM.HP.STD ---
HPI - General General Date of Admission: 04/09/25 Date of Service: 04/09/25 Chief Complaint: Epigastric pain, peptic ulcer disease and GERD HPI Narrative ZENIA TORRE, is a 49 F who presents with the Chief Complaint: Hx of ulcer Zenia has had epigastric pain x 1 week. She has a hx of heartburn and takes omeprazole intermittently which always controls it. She has restarted her omeprazole which has started to help some but it still does not feel back to normal. In 2009, she had gastric bypass surgery and following this was found to have a gastric ulcer. The pain she is having now feels similar. She has not had an EGD since 2009 and has no history of a colonoscopy. She denies abd pain, constipation, vomiting, diarrhea or melena. COUNTS INCLUDE 234 BEDS AT THE [facility] Medical History Wears glasses Thyroid disease Heartburn Non-smoker Abdominal pain Status following gastric bypass for weight loss COVID-19 Hay fever Ulcer Diarrhea Sleep apnea Heart murmur Left breast lump Asthma Sinusitis Allergic rhinitis Hypertension Vitamin D deficiency Vitamin B 12 deficiency Hypothyroidism Home Medications ?Medication ?Instructions ?Recorded ?Last Taken ?Type montelukast 10 mg tablet 10 mg PO QHS 01/18/18 Unknown History (Singulair) levothyroxine 25 mcg tablet 25 mcg PO QDAY 02/07/25 Unknown History (Levo-T) lisinopril 2.5 mg tablet 2.5 mg PO QDAY 02/07/25 Unknown History omeprazole 40 mg capsule,delayed 40 mg PO .qd 04/04/25 Unknown History release Allergy/AdvReac Type Severity Reaction Status Date / Time No Known Allergies Allergy Verified 04/09/25 08:51 Family History Father Asthma Bleeding disorder Cancer Kidney Heart disease Hypertension Thyroid disorder Ulcer Mother Bleeding disorder Diabetes Osteoporosis Other Alcoholism Anxiety Surgical History History of breast reconstruction History of hysterectomy Hx of mastectomy S/P cholecystectomy S/P gastric bypass S/P Social History Smoking Status: Never smoker second hand exposure: No alcohol intake: current substance use type: does not use caffeine: Yes what type of physical activity do you participate in: walking, running and weight training frequency: 3-4 times per week seatbelt use: always ROS Constitutional Constitutional: Denies fatigue, fever(s), poor appetite, weight gain or weight loss Gastrointestinal Gastrointestinal: Denies belching, bloating, change in bowel habits, change in stool character, chewing difficulty, coffee ground emesis, constipation, cramping, diarrhea, dyspepsia, dysphagia, early satiety, excessive flatus, fecal incontinence, heartburn, hematemesis, hematochezia, hemorrhoids, loose stools, melena, nausea, odynophagia, rectal bleeding, tenesmus, vomiting or weight changes Physical Exam Const alert, oriented x3, no apparent distress and healthy appearing General Appearance: cooperative GI normal to inspection, nondistended, normoactive bowel sounds, soft to palpation, non-tender and non-distended Percussion: normal to percussion Rectal Exam: deferred Assessment & Plan Assessment/Plan (1) Ulcer: PLAN: Assessment and Plan Assessment and Plan (1) Ulcer: Status: Acute Plan: This is a 49 yo female pt here today for evaluation of epigastric pain x6 days. Pt has a PMHx of gastric bypass. Her last EGD was in 2009 after her bypass surgery and she was noted to have a gastric ulcer. Pt feels like she may have one again. I advised she continue omeprazole 40 mg BID. I have sent this in for her. SHe was also scheduled for an EGD. She has never had a colonoscopy and I counseled on need for screening however she declined at this time. She denies melena therefore I do not believe she has an active bleeding ulcer. If she has any changes in her condition she will contact our office. -EGD -Continue PPI BID -f/u after jennifer (2) S/P gastric bypass: Status: Acute Comment: 02/2010 Medications: New omeprazole 40 mg PO BID 90 caps 1RF
[2025-04-09] MEDS: Lactated Ringers 1,000 ML 15 ML IV (09:00)
--- NOTE | 2025-04-09 09:34 | PCM.PRE.AN2 ---
ASA Classification* ASA Classification ASA Classification: 2 Assessment & Plan Anesthesia* Anesthesia Assessment Anesthesia Assessment: Discussed sedation and/or anesthesia options, risks, benefits, and alternatives with patient/parents/legal guardian/POA. Questions invited. The patient/parents/legal guardian/POA seems to understand and agrees to proceed with anesthesia plan. Reviewed the physical assessment, medical history, allergy history and patient home medications list prior to surgery/procedure/anesthetic and documented any changes. Performed airway and anesthesia risk assessments. Anesthesia Type Anesthesia Type: MAC History Source History Obtained from:: Patient and Chart Anesthesia Focused Assessment* Temperature: 97.6 F Pulse Rate: 59 Blood Pressure: 131/88 Respiratory Rate: 17 Pulse Ox: 99 Oxygen Delivery Method: Room Air Airway Assessment Mouth opens: >3 cm Mallampati Score: III Teeth Condition: Chipped/Broken (Couple chipped molars left lower jaw.) Neck Range of motion (ROM): Full ROM Labs Anesthesia Preop lab: CBC WBC 5.8 K/mm3 (4.4-11.0) 10/18/18 12:34 10/18/18 RBC 4.45 M/mm3 (4.2-5.4) 10/18/18 12:34 10/18/18 Hgb 11.9 g/dl (12.0-15.0) L 10/18/18 12:34 10/18/18 Hct 39.0 % (37-47) 10/18/18 12:34 10/18/18 Plt Count 270 K/mm3 (150-450) 10/18/18 12:34 10/18/18 CHEMISTRY Potassium 4.2 mmol/L (3.5-5.1) 10/18/18 12:34 10/18/18 Sodium 140 mmol/L (136-145) 10/18/18 12:34 10/18/18 Magnesium 2.2 mg/dL (1.6-2.6) 10/18/18 12:34 10/18/18 Phosphorus 4.0 mg/dL (2.5-4.9) 10/18/18 12:34 10/18/18 BUN 13 mg/dL (7-18) 10/18/18 12:34 10/18/18 Creatinine 1.05 mg/dL (0.55-1.02) H 10/18/18 12:34 10/18/18 Glucose 124 mg/dL (74-106) H 10/18/18 12:34 10/18/18 POC Glucose 84 mg/dL (70-110) 08/27/18 06:41 08/27/18 TSH 5.17 uIU/mL (0.358-3.74) H 10/05/15 16:45 10/05/15 COAG PT 13.2 SECONDS (11.7-14.9) 08/22/18 14:25 08/22/18 Urine Test Negative Negative 08/27/18 06:27 08/27/18 Pre-Assessment Diagnosis/Proposed Procedure Planned Operative Procedure(s): EGD Anesthesia History 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 When Was Last Pacemaker Check QUESTION #4 FULL TEXT: You/Your Family Experience fever (hyperthermia) with Anesthesia Last Oral Intake Last Oral intake: Last Oral Intake NPO since 08:45 04/09/25 09:11 Meds taken in AM with sips of No 04/09/25 09:11 water? Meds patient instructed to take am of surgery Any additional information?: Yes NPO since: 08:00 (Zyrtec) Meds taken in AM with sips of water?: Yes PONV PONV - motorboat mechanic: PONV - motorboat mechanic Female Yes 04/04/25 15:44 HX of Motion Sickness No 04/04/25 15:44 HX of N/V After Surgery Yes 04/04/25 15:44 Non-Smoker Yes 04/04/25 15:44 Duration of Surgery greater No 04/04/25 15:44 than 60 minutes Number of Risk Factors 3 04/04/25 15:44 PONV Score Moderate Risk 04/04/25 15:44 Height & Weight Height & Weight: Anesthesia: Height & Weight Height 5 ft 6 in 04/09/25 09:11 Weight: 100.9 kg 04/09/25 09:11 Body Mass Index (BMI) 35.9 04/09/25 09:11 Respiratory Assessment Respiratory Assessment - motorboat mechanic: Respiratory Tract Infection Hx - motorboat mechanic Hx Respiratory Tract Infection No 04/04/25 15:44 STOP Sleep Apnea STOP Sleep Apnea - motorboat mechanic: STOP Sleep Apnea - motorboat mechanic Hx Hypertension Yes: MEDS 04/04/25 15:44 Hx Sleep Apnea No 04/04/25 15:44 CPAP No 08/27/18 09:46 BIPAP No 08/20/18 14:51 Do you snore loudly (louder Yes 04/04/25 15:44 than talking or can be heard Do you often feel tired/ No 04/04/25 15:44 fatigued/ sleepy during daytime? Has anyone observed you stop Yes 04/04/25 15:44 breathing during sleep? STOP Results Positive 04/04/25 15:44 QUESTION #5 FULL TEXT : Do you snore loudly (louder than talking or can be heard through closed doors)? 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 Specify any problems Hx of Preganancy in last 3 No 04/04/25 15:44 Months Nurse Filling Out Transfusion JZOLLINGE 04/04/25 15:44 & Questions: Date: 04/04/25 04/04/25 15:44 Time: 15:45 04/04/25 15:44 Patient unable to answer at this time (ie. confused, unrespo /Reproduction History /Reproductive History - motorboat mechanic: /Reproductive Hx- motorboat mechanic Hx Now No 04/04/25 15:44 Gestational Age (in weeks): EDC: Hx Hx Para Hx Section SAB No 04/04/25 15:44 Active Medications Active Medications: Current Medications Generic Name Dose Route Start Last Admin Trade Name Freq PRN Reason Stop Dose Admin Lactated Ringer's 1,000 mls @ 15 mls/hr 04/09/25 09:00 04/09/25 09:00 IV 15 mls/hr .Q48H DALTON Administration PFSH Medical History Wears glasses Thyroid disease Heartburn Non-smoker Abdominal pain Status following gastric bypass for weight loss COVID-19 Hay fever Ulcer Diarrhea Sleep apnea Heart murmur Left breast lump Asthma Sinusitis Allergic rhinitis Hypertension Vitamin D deficiency Vitamin B 12 deficiency Hypothyroidism Home Medications ?Medication ?Instructions ?Recorded ?Last Taken ?Type montelukast 10 mg tablet 10 mg PO QHS 01/18/18 04/08/25 History (Singulair) levothyroxine 25 mcg tablet 25 mcg PO QDAY 02/07/25 04/08/25 History (Levo-T) lisinopril 2.5 mg tablet 2.5 mg PO QDAY 02/07/25 04/08/25 History omeprazole 40 mg capsule,delayed 40 mg PO .qd 04/04/25 04/08/25 History release cetirizine 10 mg tablet (24Hour 10 mg PO DAILY PRN allergy symptoms 04/09/25 04/09/25 History Allergy) Allergy/AdvReac Type Severity Reaction Status Date / Time No Known Allergies Allergy Verified 04/09/25 09:10 Family History Father Asthma Bleeding disorder Cancer Kidney Heart disease Hypertension Thyroid disorder Ulcer Mother Bleeding disorder Diabetes Osteoporosis Other Alcoholism Anxiety Surgical History History of breast reconstruction History of hysterectomy Hx of mastectomy S/P cholecystectomy S/P gastric bypass S/P Social History Smoking Status: Never smoker second hand exposure: No alcohol intake: current substance use type: does not use caffeine: Yes what type of physical activity do you participate in: walking, running and weight training frequency: 3-4 times per week seatbelt use: always Review of Systems (Anesthesia) ROS Narrative System reviewed and no additional complaints, except as documented. Physical Exam Resp clear to auscultation bilaterally
--- NOTE | 2025-04-09 09:45 | EGD_PTH ---
PATIENT: KOURTNEY TORRE LOC: EN U#:[id number] AGE/SX: 49/F ROOM: RE04/09/[address]: Dr. Mu Lao DO : 1975 BED: DIS: 04/09/2025 SPEC #: [id number] RECD: 04/09/25 13:15 STATUS: WILD RECarolina #: [id number] DELMA: 04/09/25 09:[address]: Mu Lao DEPT: SURGICAL PATHOLOGY RECD BY: Jacinto Schmidt ENTERED: 04/09/25 14:42 SP TYPE: EGD BIOPSY OT DR: Cristina Flores, SAP [employer]ROLL CONSULTANT-C Tissues: A - Jejunum, NOS B - COLON BIOPSY Procedures: Surgery Specimen Level IV HEADER OPERATION: EGD with biopsy PRE-OP DIAGNOSIS: Ulcer, status post gastric bypass TISSUE SUBMITTED: A- Jejunum biopsy, B- Anastomosis biopsy MICROSCOPIC DIAGNOSIS A. Jejunum, biopsy: - No specific pathologic change. B. Anastomosis, site not specified, biopsy: - Combined fragments of small intestinal and gastric mucosa with no specific pathologic change. MICROSCOPIC DESCRIPTION Slides are reviewed. GROSS DESCRIPTION A. Received in fixative is one container labeled with the patient's name and designated Jejunum biopsy. The specimen consists of multiple irregular fragments of light [place] soft tissue that in aggregate measure 0.9 x 0.5 x 0.2 cm. The specimen is totally submitted in one cassette. B. Received in fixative is one container labeled with the patient's name and designated Anastomosis biopsy. The specimen consists of multiple irregular fragments of light [place] soft tissue that in aggregate measure <0.1 to 0.6 cm. The specimen is totally submitted in one cassette. Yocasta 04/09/2025 CPT:98112n9
--- NOTE | 2025-04-09 10:41 | OP.EGD_ITS ---
Patient Name: Zenia Kirkland Procedure Date: 04/09/2025 10:16 AM Date of : 1975 Age: 49 Procedure: Upper GI endoscopy Indications: Epigastric abdominal pain Providers: DO Gustavo Miguel MD: Cyrus Mcghee Medicines: Monitored Anesthesia Care Patient Profile: This is a 49 year old female. Refer to note in patient chart for documentation of history and physical. Patient has symptoms of chronic epigastric abdominal pain and acute dyspepsia. Complications: No immediate complications. Procedure: Pre-Anesthesia Assessment: - Prior to the procedure, a History and Physical was performed, and patient medications and allergies were reviewed. The patient is competent. The risks and benefits of the procedure and the sedation options and risks were discussed with the patient. All questions were answered and informed consent was obtained. Patient identification and proposed procedure were verified by the physician in the pre-procedure area. Mental Status Examination: alert and oriented. Airway Examination: normal oropharyngeal airway and neck mobility. Respiratory Examination: clear to auscultation. CV Examination: normal. Prophylactic Antibiotics: The patient does not require prophylactic antibiotics. Prior Anticoagulants: The patient has taken no anticoagulant or antiplatelet agents except for NSAID medication. ASA Grade Assessment: II - A patient with mild systemic disease. After reviewing the risks and benefits, the patient was deemed in satisfactory condition to undergo the procedure. The anesthesia plan was to use monitored anesthesia care (MAC). Immediately prior to administration of medications, the patient was re-assessed for adequacy to receive sedatives. The heart rate, respiratory rate, oxygen saturations, blood pressure, adequacy of pulmonary ventilation, and response to care were monitored throughout the procedure. The physical status of the patient was re-assessed after the procedure. After obtaining informed consent, the endoscope was passed under direct vision. Throughout the procedure, the patient's blood pressure, pulse, and oxygen saturations were monitored continuously. The Endoscope was introduced through the mouth, and advanced to the anastomosis site of gastric bypass. The upper GI endoscopy was accomplished without difficulty. The patient tolerated the procedure well. Scope In: 10:28:02 AM Scope Out: 10:33:04 AM Total Procedure Duration Time 0 hours 5 minutes 2 seconds Findings: The examined esophagus was normal. Evidence of a Pelon-en-Y gastrojejunostomy was found. The gastrojejunal anastomosis was characterized by congestion, edema and inflammation. This was traversed. The wuzhv-ud-onkiotc limb was characterized by healthy appearing mucosa. The jejunojejunal anastomosis was characterized by healthy appearing mucosa. The ayornkco-br-ggpehlx limb was not examined as it could not be found. The excluded stomach was not examined as it could not be found. Biopsies were taken with a cold forceps for histology. Verification of patient identification for the specimen was done. Estimated blood loss was minimal. Patchy mildly erythematous mucosa without active bleeding and with no stigmata of bleeding was found in the jejunum. Biopsies were taken with a cold forceps for histology. Verification of patient identification for the specimen was done. Estimated blood loss was minimal. Impression: - Normal esophagus. - Pelon-en-Y gastrojejunostomy with gastrojejunal anastomosis characterized by congestion, edema and inflammation. Biopsied. - Erythematous (hyperemic) jejunal mucosa. Biopsied. Recommendation: - Discharge patient to home. - Resume previous diet. - Continue present medications. - Await pathology results. Procedure Code(s): --- Professional --- 56930, Esophagogastroduodenoscopy, flexible, transoral; with biopsy, single or multiple CPT copyright 2021 [employer]. All rights reserved. The codes documented in this report are preliminary and upon electrical wirer review may be revised to meet current compliance requirements. Mu Lao DO 04/09/2025 10:40:52 AM This report has been signed electronically. Number of Addenda: 0 Note Initiated On: 04/09/2025 10:16 AM
--- NOTE | 2025-04-09 10:41 | OP.CCLET_ITS ---
04/09/2025 Cyrus Mcghee Re : Upper GI endoscopy procedure for Zenia Kirkland Dear Sandra This procedure was performed on Wednesday, April 09, 2025. My impressions and recommendations are as follows: Impressions : - Normal esophagus. - Pelon-en-Y gastrojejunostomy with gastrojejunal anastomosis characterized by congestion, edema and inflammation. Biopsied. - Erythematous (hyperemic) jejunal mucosa. Biopsied. Recommendations : - Discharge patient to home. - Resume previous diet. - Continue present medications. - Await pathology results. My findings are described in the full procedure note, which is enclosed. If I can be of further assistance, please feel free to contact me at . Sincerely, Mu Lao, 04/09/2025 10:40:52 AM This report has been signed electronically.
--- NOTE | 2025-04-09 10:42 | PCM.POST.ANE ---
Anesthesia: Postop Eval I Current Vital Signs Temperature: 97.5 F Pulse Rate: 62 Blood Pressure: 149/94 Respiratory Rate: 16 Pulse Ox: 97 Oxygen Delivery Method: Room Air Assessment Airway patent: Yes Spontaneous unlabored respirations: Yes Mental status: Awake and Calm nausea: No Vomiting: No Anesthesia Complication: No Fluid Hydration Crystalloid volume administer (ml): 300 Total IV fluid infused: 300 Progress Note Anesthesia document: Postop Eval 1 completed: Yes
--- NOTE | 2025-04-09 14:48 | PCM.POSTANE2 ---
Anesthesia Postop Eval I Sum Postop Eval Completion status Anesthesia document: Postop Eval 1 completed: Yes Anesthesia Postop Eval I Summary Anesthesia Postop Eval I Summary: Anesthesia Postop Eval I: Assessment Summary Airway patent Yes 04/09/25 10:43 [email or web address] Spontaneous unlabored Yes 04/09/25 10:43 [email or web address] respirations Mental status Awake,Calm 04/09/25 10:43 [email or web address] nausea No 04/09/25 10:43 [email or web address] Vomiting No 04/09/25 10:43 [email or web address] Anesthesia Postop Eval I: Fluid Summary Crystalloid volume administer 300 04/09/25 10:43 [email or web address] (ml) Colloids volume administered ( ml) Blood Product volume administered (ml) Total IV fluid infused 300 04/09/25 10:43 [email or web address] Anesthesia Postop Eval I: Summary Notes Anesthesia Complication No 04/09/25 10:43 [email or web address] Anesthesia Complication Comment: Post-operative progress note Anesthesia: Postop Eval II Evaluation Mental status: Awake Pain Level: 0 nausea: No Vomiting: No
== END 2025-04-09 11:20 | disposition home or self-care (01) ==
LOC: EN 08:42 → AC 08:44
PROVIDERS: PCP Registered Nurse; Referring Provider Registered Nurse; Visit Provider Internal Medicine Gastroenterology
PROC: 0DJ08ZZ Inspection of Upper Intestinal Tract, Via Natural or Artificial Opening Endoscopic (ICD-10-PCS; CPT 43235; principal; 2025-04-09 09:40)
DX: K31.89 Other diseases of stomach and duodenum (principal); K21.9 Gastro-esophageal reflux disease without esophagitis; I10 Essential (primary) hypertension; E03.9 Hypothyroidism, unspecified; Z90.49 Acquired absence of other specified parts of digestive tract; Z87.19 Personal history of other diseases of the digestive system; Z98.84 Bariatric surgery status; Z79.890 Hormone replacement therapy; Z79.899 Other long term (current) drug therapy
CPT/HCPCS: 43239; 88305; J2405